=== PATIENT | male | born 1985 | race African-American/Black ===

== ENCOUNTER 2016-11-13 02:27 | Emergency (ER) | payer SELFPAY ==
[~2016-11-13] VITALS: Ht 188 cm; Wt 84.0 kg
[~2016-11-13 02:27] MED LIST: CLIN1CAP5 PO; NAPR500 PO
[2016-11-13 02:29] VITALS: BP 140/89; PULSE 78; RESP 16; TEMP 97.3; O2SAT 100
--- NOTE | 2016-11-13 03:17 | PD ---
HPI Chief Complaint: Psychiatric Symptoms Time Seen by Provider: 03:16 Travel History International Travel<30 days: No Contact w/Intl Traveler<30days: No Traveled to known affect area: No History of Present Illness HPI Patient comes in requesting psychiatric evaluation. Patient states over the past 2-3 days has been feeling more depressed and crying. Patient states he use to use flakka, but he has not in a while. He thought about finding some decided to come to the emergency department further treatment and evaluation. Patient states that he is having thoughts of killing other people and then possibly himself. He states he does not want to do this so is seeking help. Patient denies any medical complaints. Denies any chest pain or shortness of breath, nausea or vomiting, abdominal pain, back pain, or fevers. PFSH Past Medical History Anxiety: Yes Cancer: No Cardiovascular Problems: Yes (high bp) Diminished Hearing: No Endocrine: No Gastrointestinal Disorders: Yes (STOMACH ULCERS) Genitourinary: No Hypertension: Yes Immune Disorder: No Implanted Vascular Access Dvce: No Musculoskeletal: Yes (Costochondritis) Neurologic: No Psychiatric: No Respiratory: No Immunizations Current: Yes Past Surgical History Abdominal Surgery: Yes (HERNIA REPAIR - INGUINAL LEFT @ age 15) Cholecystectomy: Yes Other Surgery: Yes (hernia) Social History Alcohol Use: No (UNABLE TO ACCESS) Tobacco Use: No Substance Use: Yes (UNKNOWN ) Allergies-Medications (Allergen,Severity, Reaction): Coded Allergies: No Known Allergies (Verified , 11/13/16) Reported Meds & Prescriptions Reported Meds & Active Scripts Active Review of Systems Except as stated in HPI: all other systems reviewed are Neg Physical Exam Narrative GENERAL: Well-developed, well nourished, in no acute distress, and non-ill appearing. SKIN: Warm and dry. HEAD: Atraumatic. Normocephalic. EYES: Pupils equal and round. EOMI. No scleral icterus. No injection or drainage. ENT: No nasal bleeding or discharge. Mucous membranes pink and moist. NECK: Trachea midline. Supple. No nuclear rigidity. CARDIOVASCULAR: Regular rate and rhythm. No murmur appreciated. RESPIRATORY: No accessory muscle use. No respiratory distress. Clear to auscultation. Breath sounds equal bilaterally. MUSCULOSKELETAL: No obvious deformities. No clubbing. No cyanosis. No edema. Full range of motion. NEUROLOGICAL: Awake and alert. No obvious cranial nerve deficits. Motor grossly within normal limits. Normal speech. PSYCHIATRIC: Appropriate mood and affect; insight and judgment normal. Data Data Last Documented VS Vital Signs Date Time Temp Pulse Resp B/P Pulse Ox O2 Delivery O2 Flow Rate FiO2 11/13/16 03:06 20 11/13/16 02:29 97.3 78 140/89 100 Orders Complete Blood Count With Diff (11/13/16 03:00) Comprehensive Metabolic Panel (11/13/16 03:00) Psych Screen (11/13/16 03:00) Drug Screen, Random Urine (11/13/16 03:00) Alcohol (Ethanol) (11/13/16 03:00) Salicylates (Aspirin) (11/13/16 03:00) Tylenol (Acetaminophen) (11/13/16 03:00) Labs Laboratory Tests Test 11/13/16 03:35 White Blood Count 7.6 TH/MM3 Red Blood Count 5.07 MIL/MM3 Hemoglobin 14.0 GM/DL Hematocrit 40.7 % Mean Corpuscular Volume 80.3 FL Mean Corpuscular Hemoglobin 27.5 PG Mean Corpuscular Hemoglobin 34.3 % Concent Red Cell Distribution Width 14.5 % Platelet Count 237 TH/MM3 Mean Platelet Volume 8.5 FL Neutrophils (%) (Auto) 40.8 % Lymphocytes (%) (Auto) 42.4 % Monocytes (%) (Auto) 10.9 % Eosinophils (%) (Auto) 5.0 % Basophils (%) (Auto) 0.9 % Neutrophils # (Auto) 3.1 TH/MM3 Lymphocytes # (Auto) 3.2 TH/MM3 Monocytes # (Auto) 0.8 TH/MM3 Eosinophils # (Auto) 0.4 TH/MM3 Basophils # (Auto) 0.1 TH/MM3 CBC Comment DIFF FINAL Differential Comment Sodium Level 144 MEQ/L Potassium Level 4.0 MEQ/L Chloride Level 109 MEQ/L Carbon Dioxide Level 25.8 MEQ/L Anion Gap 9 MEQ/L Blood Urea Nitrogen 13 MG/DL Creatinine 1.17 MG/DL Estimat Glomerular Filtration 89 ML/MIN Rate Random Glucose 81 MG/DL Calcium Level 8.8 MG/DL Total Bilirubin 0.2 MG/DL Aspartate Amino Transf 25 U/L (AST/SGOT) Alanine Aminotransferase 34 U/L (ALT/SGPT) Alkaline Phosphatase 109 U/L Total Protein 6.9 GM/DL Albumin 3.7 GM/DL Salicylates Level 2.9 MG/DL Acetaminophen Level LESS THAN 2.0 MCG/ML Ethyl Alcohol Level LESS THAN 3 MG/DL MDM Medical Decision Making Medical Screen Exam Complete: Yes Emergency Medical Condition: Yes Differential Diagnosis Homicidal, suicidal, substance abuse, alcohol intoxication, electrolyte abnormality, other Narrative Course Patient was seen and examined. Due to patient's homicidal and suicidal ideations patient was placed under Hung act. Labs were obtained and reviewed with the exception of urine drug screen which has not been reported yet. Patient medically cleared for further treatment and evaluation by psych. Final disposition per psych. Diagnosis Primary Impression: Suicidal ideations Additional Impression: Homicidal ideations Condition: Stable Levy Mera Nov 13, 2016 03:17 Levy Mera Nov 13, 2016 03:17
[2016-11-13 04:00] LABS: AUTOMATED NEUTROPHIL # 3.1 TH/MM3 (1.8-7.7); BASOPHIL # 0.1 TH/MM3 (0-0.2); BASOPHIL % 0.9 % (0.0-2.0); EOSINOPHIL # 0.4 TH/MM3 (0-0.4); HEMATOCRIT 40.7 % (39.0-51.0); HEMO FLAGS DIFF FINAL; LYMPH % 42.4 % (9.0-44.0); LYMPHOCYTE # 3.2 TH/MM3 (1.0-4.8); MEAN CELL VOLUME 80.3 FL (80.0-100.0); MEAN CORPUSCULAR HEMOGLOBIN 27.5 PG (27.0-34.0); MEAN CORPUSCULAR HGB CONC 34.3 % (32.0-36.0); MONO % 10.9 % (0.0-8.0); NEUT % 40.8 % (16.0-70.0); PLATELET COUNT 237 TH/MM3 (150-450); RED BLOOD COUNT 5.07 MIL/MM3 (4.50-5.90); RED CELL DISTRIBUTION WIDTH 14.5 % (11.6-17.2); WHITE BLOOD COUNT 7.6 TH/MM3 (4.0-11.0)
[2016-11-13 04:14] LABS: ALT (GPT) 34 U/L (12-78); ANION GAP 9 MEQ/L (5-15); AST (GOT) 25 U/L (15-37); BICARBONATE 25.8 MEQ/L (21.0-32.0); BLOOD UREA NITROGEN 13 MG/DL (7-18); CHLORIDE 109 MEQ/L (98-107); GLOMERULAR FILTRATION RATE 89 ML/MIN (>89); SODIUM (NA) 144 MEQ/L (136-145)
[2016-11-13 04:16] LABS: ACETAMINOPHEN LESS THAN 2.0 MCG/ML (10.0-30.0); ALKALINE PHOSPHATASE 109 U/L (45-117); TOTAL BILIRUBIN ADULT 0.2 MG/DL (0.2-1.0)
[2016-11-13 05:11] LABS: AMPHETAMINE, URINE NEG (NEG); BARBITURATES, URINE NEG (NEG); COCAINE, URINE NEG (NEG)
[2016-11-13 07:09] VITALS: BP 127/81; PULSE 74; RESP 20; O2SAT 100
[2016-11-13 10:53] VITALS: BP 121/75; PULSE 58; RESP 17; O2SAT 100
[2016-11-13 13:24] VITALS: BP 140/83
[2016-11-13 18:54] VITALS: BP 134/69; PULSE 67; RESP 18; O2SAT 97
== END 2016-11-13 21:45 ==
LOC: NEPA 02:27 → NEPJ 21:45
DX: R45.851 Suicidal ideations (principal); R45.850 Homicidal ideations; I10 Essential (primary) hypertension
CPT/HCPCS: 80053; 80307; 85025; 99285

== ENCOUNTER 2016-11-23 03:58 | Emergency (ER) | payer SELFPAY ==
[~2016-11-23] VITALS: Ht 185.4 cm; Wt 90.9 kg
[2016-11-23 04:10] VITALS: BP 163/82; PULSE 77; RESP 20; TEMP 97.6; O2SAT 98
--- NOTE | 2016-11-23 04:11 | PD ---
HPI Chief Complaint: psychiatric evaluation Time Seen by Provider: 04:09 Travel History International Travel<30 days: No Contact w/Intl Traveler<30days: No History of Present Illness HPI Patient comes in under a Hung act by police for having suicidal homicidal ideations. Patient states that people were antagonizing him to get him irritated. Patient denies any medical concerns at this time. Denies any chest pain, shortness breath, fevers, headache, nausea, vomiting, or abdominal pain. PFSH Past Medical History Anxiety: Yes Depression: Yes Cancer: No Cardiovascular Problems: Yes (high bp) Diminished Hearing: No Endocrine: No Gastrointestinal Disorders: Yes (STOMACH ULCERS) Genitourinary: No Hypertension: Yes Immune Disorder: No Implanted Vascular Access Dvce: No Musculoskeletal: Yes (Costochondritis) Neurologic: No Psychiatric: No Respiratory: No Immunizations Current: Yes Past Surgical History Abdominal Surgery: Yes (HERNIA REPAIR - INGUINAL LEFT @ age 15) Cholecystectomy: Yes Other Surgery: Yes (hernia) Social History Alcohol Use: No Tobacco Use: Yes (one pack a week) Substance Use: Yes (pot/kiran) Allergies-Medications (Allergen,Severity, Reaction): Coded Allergies: No Known Allergies (Verified , 11/13/16) Reported Meds & Prescriptions Reported Meds & Active Scripts Active Review of Systems Except as stated in HPI: all other systems reviewed are Neg Physical Exam Narrative GENERAL: Well-developed, well nourished, in no acute distress, and non-ill appearing. SKIN: Warm and dry. HEAD: Atraumatic. Normocephalic. EYES: Pupils equal and round. EOMI. No scleral icterus. No injection or drainage. ENT: No nasal bleeding or discharge. Mucous membranes pink and moist. NECK: Trachea midline. Supple. No nuclear rigidity. CARDIOVASCULAR: Regular rate and rhythm. No murmur appreciated. RESPIRATORY: No accessory muscle use. No respiratory distress. Clear to auscultation. Breath sounds equal bilaterally. MUSCULOSKELETAL: No obvious deformities. No clubbing. No cyanosis. No edema. Full range of motion. NEUROLOGICAL: Awake and alert. No obvious cranial nerve deficits. Motor grossly within normal limits. Normal speech. PSYCHIATRIC: Appropriate mood and affect. Data Data Last Documented VS Vital Signs Date Time Temp Pulse Resp B/P Pulse Ox O2 Delivery O2 Flow Rate FiO2 11/23/16 04:10 97.6 77 20 163/82 98 Orders Complete Blood Count With Diff (11/23/16 04:08) Comprehensive Metabolic Panel (11/23/16 04:08) Psych Screen (11/23/16 04:08) Drug Screen, Random Urine (11/23/16 04:08) Alcohol (Ethanol) (11/23/16 04:08) Salicylates (Aspirin) (11/23/16 04:08) Tylenol (Acetaminophen) (11/23/16 04:08) Labs Laboratory Tests Test 11/23/16 04:20 White Blood Count 5.8 TH/MM3 Red Blood Count 4.90 MIL/MM3 Hemoglobin 13.3 GM/DL Hematocrit 39.3 % Mean Corpuscular Volume 80.2 FL Mean Corpuscular Hemoglobin 27.2 PG Mean Corpuscular Hemoglobin 33.9 % Concent Red Cell Distribution Width 14.5 % Platelet Count 201 TH/MM3 Mean Platelet Volume 9.0 FL Neutrophils (%) (Auto) 26.4 % Lymphocytes (%) (Auto) 48.7 % Monocytes (%) (Auto) 19.8 % Eosinophils (%) (Auto) 4.5 % Basophils (%) (Auto) 0.6 % Neutrophils # (Auto) 1.5 TH/MM3 Lymphocytes # (Auto) 2.8 TH/MM3 Monocytes # (Auto) 1.2 TH/MM3 Eosinophils # (Auto) 0.3 TH/MM3 Basophils # (Auto) 0.0 TH/MM3 CBC Comment DIFF FINAL Differential Comment Sodium Level 143 MEQ/L Potassium Level 3.6 MEQ/L Chloride Level 112 MEQ/L Carbon Dioxide Level 24.3 MEQ/L Anion Gap 7 MEQ/L Blood Urea Nitrogen 14 MG/DL Creatinine 1.15 MG/DL Estimat Glomerular Filtration 91 ML/MIN Rate Random Glucose 98 MG/DL Calcium Level 8.7 MG/DL Total Bilirubin 0.3 MG/DL Aspartate Amino Transf 55 U/L (AST/SGOT) Alanine Aminotransferase 50 U/L (ALT/SGPT) Alkaline Phosphatase 117 U/L Total Protein 7.3 GM/DL Albumin 3.7 GM/DL Acetaminophen Level LESS THAN 2.0 MCG/ML Ethyl Alcohol Level LESS THAN 3 MG/DL MDM Medical Decision Making Medical Screen Exam Complete: Yes Emergency Medical Condition: Yes Differential Diagnosis Homicidal, suicidal, substance abuse, adjustment disorder, mood disorder, other Narrative Course Patient was seen and examined. Labs were obtained and reviewed with the exception of urine drug screen has not been collected yet. Patient medically cleared for further treatment and evaluation by psych. Final disposition per psych. Diagnosis Primary Impression: Medical clearance for psychiatric admission Condition: Levy Decker Nov 23, 2016 04:11
[2016-11-23 04:57] LABS: AUTOMATED NEUTROPHIL # 1.5 TH/MM3 (1.8-7.7); BASOPHIL % 0.6 % (0.0-2.0); EOSINOPHIL # 0.3 TH/MM3 (0-0.4); EOSINOPHIL % 4.5 % (0.0-4.0); HEMATOCRIT 39.3 % (39.0-51.0); HEMO FLAGS DIFF FINAL; LYMPH % 48.7 % (9.0-44.0); LYMPHOCYTE # 2.8 TH/MM3 (1.0-4.8); MEAN CELL VOLUME 80.2 FL (80.0-100.0); MEAN CORPUSCULAR HEMOGLOBIN 27.2 PG (27.0-34.0); MEAN CORPUSCULAR HGB CONC 33.9 % (32.0-36.0); MONO % 19.8 % (0.0-8.0); NEUT % 26.4 % (16.0-70.0); PLATELET COUNT 201 TH/MM3 (150-450); RED CELL DISTRIBUTION WIDTH 14.5 % (11.6-17.2); WHITE BLOOD COUNT 5.8 TH/MM3 (4.0-11.0)
[2016-11-23 05:19] LABS: ANION GAP 7 MEQ/L (5-15); AST (GOT) 55 U/L (15-37); BICARBONATE 24.3 MEQ/L (21.0-32.0); BLOOD UREA NITROGEN 14 MG/DL (7-18); CHLORIDE 112 MEQ/L (98-107); GLOMERULAR FILTRATION RATE 91 ML/MIN (>89); POTASSIUM 3.6 MEQ/L (3.5-5.1); SODIUM (NA) 143 MEQ/L (136-145)
[2016-11-23 05:22] LABS: ACETAMINOPHEN LESS THAN 2.0 MCG/ML (10.0-30.0); ALKALINE PHOSPHATASE 117 U/L (45-117); ALT (GPT) 50 U/L (12-78); TOTAL BILIRUBIN ADULT 0.3 MG/DL (0.2-1.0)
[2016-11-23 09:25] LABS: AMPHETAMINE, URINE NEG (NEG); BARBITURATES, URINE NEG (NEG); COCAINE, URINE NEG (NEG)
[2016-11-23 14:00] VITALS: BP 144/64; PULSE 67; RESP 18; TEMP 98.7; O2SAT 99
--- NOTE | 2016-11-23 14:29 | PD ---
History of Present Illness Chief Complaint: Psychiatric Symptoms Time Seen by Provider: 14:00 Travel History International Travel<30 Days: No Contact w/Intl Traveler<30days: No Known affected area: No Legal Status Legal Status: Hung Act History of Present Illness: History of Present Illness HPI 31 year old male with history of substance use disorder who comes in under a Hung act initiated by police. As per the report he contacted the police and advised them that he felt suicidal and homicidal . He stated he wanted to hurt himself and to achieve such he would walk unto traffic. As per ED documentation patient reported that people were antagonizing him to get him irritated. EMR reviewed . Patient was at [facility] on November 13 and was sent to [facility]. He initially presented with suicidal ideation and later made threats that he wanted to shoot people. Patient with hx of substance abuse including Flakka. Current toxicology is positive for cannabinoids. Patient is seen in [facility]. He is irritable and uncooperative. Refuses to answer questions and sates " It's in my chart from 1 and a half year ago. You should know all that." He talks in circles. He insists that he needs to file a report with the police because "there are people out there that are going to hurt me". He denies any psychiatric condition. Patient becomes increasingly agitated and states that if he is discharged from the hospital he will go out and kill several people. he is advised that he has been placed on [facility] list for treatment and will remain here until his acceptance there. He makes several requests such as extra lunch, extra blankets and staff have provided such for him. He continued to escalate and made verbal threats towards staff " I will hurt someone just to prove my point". Verbal attempts at deescalation were unsuccessful. Patient required ETO as well as restraints as he threatened to hurt security staff. [facility] Past Medical History Anxiety: Yes Depression: Yes Cancer: No Cardiovascular Problems: Yes (high bp) Diminished Hearing: No Endocrine: No Gastrointestinal Disorders: Yes (STOMACH ULCERS) Genitourinary: No Hypertension: Yes Immune Disorder: No Implanted Vascular Access Dvce: No Musculoskeletal: Yes (Costochondritis) Neurologic: No Psychiatric: No Respiratory: No Immunizations Current: Yes Past Surgical History Abdominal Surgery: Yes (HERNIA REPAIR - INGUINAL LEFT @ age 15) Cholecystectomy: Yes Other Surgery: Yes (hernia) Psychiatric History Psychiatric History Hx Psychiatric Treatment: WAS HUNG ACTED 10 DAYS HERE BY THE ER DOCTOR FOR MAKING SUICIDAL AND HOMICIDAL STATEMENTS. HE WENT TO [facility]. HE DENIED PREVIOUS TREATMENT AT [facility] A CHILD, ALTHOUGH MEDICAL RECORDS INDICATE CONTACT IN 2003 History of Inpatient Treatment: Yes Social History refused to answer. " Why do you need to know that? Hx Alcohol Use: No Hx Tobacco Use: Yes (one pack a week) Hx Substance Use: Yes (pot/kiran, FLAKKA) Substance Use Type: Other Other Substances Used: KLAKKA, MARIJUANA Hx of Substance Use Treatment: No Allergies-Medications (Allergen,Severity, Reaction): Coded Allergies: No Known Allergies (Verified , 11/13/16) Reported Meds & Prescriptions Reported Meds & Active Scripts Active Review of Systems ROS Limitations: Uncooperative Exam Alert: Yes [place]: Person (ox4) Mood: Agitated, Other (threatning) Affect: Other Speech: Clear (Talks in circles) Memory Intact: Comment (unable to test) Delusion Type: Paranoid Homicidal: Ideation (reports intent to shoot people) Insight/Judgement poor. poor MDM Medical Decision Making Medical Record Reviewed: Yes Assessment/Plan 31 year old male under a BA. He is uncooperative, agitated, threatening. Patient remains on [facility] as well as [facility] list. There are no appropriate beds at [facility] at this time.. Orders Complete Blood Count With Diff (11/23/16 04:08) Comprehensive Metabolic Panel (11/23/16 04:08) Psych Screen (11/23/16 04:08) Drug Screen, Random Urine (11/23/16 04:08) Alcohol (Ethanol) (11/23/16 04:08) Salicylates (Aspirin) (11/23/16 04:08) Tylenol (Acetaminophen) (11/23/16 04:08) Diet Regular Basic (11/23/16 Breakfast) Diet Regular Basic (11/23/16 Lunch) Diet Regular Basic (11/23/16 Dinner) Results Vital Signs Date Time Temp Pulse Resp B/P Pulse Ox O2 Delivery O2 Flow Rate FiO2 11/23/16 04:10 97.6 77 20 163/82 98 Laboratory Tests Test 11/23/16 11/23/16 04:20 09:00 White Blood Count 5.8 Red Blood Count 4.90 Hemoglobin 13.3 Hematocrit 39.3 Mean Corpuscular Volume 80.2 Mean Corpuscular Hemoglobin 27.2 Mean Corpuscular Hemoglobin 33.9 Concent Red Cell Distribution Width 14.5 Platelet Count 201 Mean Platelet Volume 9.0 Neutrophils (%) (Auto) 26.4 Lymphocytes (%) (Auto) 48.7 Monocytes (%) (Auto) 19.8 Eosinophils (%) (Auto) 4.5 Basophils (%) (Auto) 0.6 Neutrophils # (Auto) 1.5 Lymphocytes # (Auto) 2.8 Monocytes # (Auto) 1.2 Eosinophils # (Auto) 0.3 Basophils # (Auto) 0.0 CBC Comment DIFF FINAL Differential Comment Sodium Level 143 Potassium Level 3.6 Chloride Level 112 Carbon Dioxide Level 24.3 Anion Gap 7 Blood Urea Nitrogen 14 Creatinine 1.15 Estimat Glomerular Filtration 91 Rate Random Glucose 98 Calcium Level 8.7 Total Bilirubin 0.3 Aspartate Amino Transf 55 (AST/SGOT) Alanine Aminotransferase 50 (ALT/SGPT) Alkaline Phosphatase 117 Total Protein 7.3 Albumin 3.7 Salicylates Level 2.1 Acetaminophen Level LESS THAN 2.0 Ethyl Alcohol Level LESS THAN 3 Urine Opiates Screen NEG Urine Barbiturates Screen NEG Urine Amphetamines Screen NEG Urine Benzodiazepines Screen NEG Urine Cocaine Screen NEG Urine Cannabinoids Screen POS Diagnosis Primary Impression: Medical clearance for psychiatric admission Additional Impressions: Drug-induced mood disorder Substance abuse Disposition: 65 DISC TO PSYCH CARE FACILITY Condition: Stable Problem Qualifiers Taylor Conner Nov 23, 2016 14:29
[2016-11-23] MEDS ORDERED: HALOPERIDOL LACTATE 5 MG/ML AMP ONE (15:57)
[2016-11-23] MEDS ORDERED: diphenhydrAMINE HCL 50 MG/ML VIAL ONE (15:58)
[2016-11-23] MEDS ORDERED: LORazepam 2 MG/ML VIAL ONE (15:58)
[2016-11-23] MEDS ORDERED: LORazepam 2 MG/ML VIAL IM ONE (16:30)
[2016-11-23 18:45] VITALS: BP 142/94; PULSE 60; RESP 18; TEMP 97.9; O2SAT 98
[2016-11-23 22:15] VITALS: BP 140/90; PULSE 62; RESP 18; O2SAT 99
== END 2016-11-24 00:39 ==
LOC: NEPA 03:58 → NEPJ 11-24 00:39
DX: Z02.89 Encounter for other administrative examinations (principal); F19.94 Other psychoactive substance use, unspecified with psychoactive substance-induced mood disorder; F19.10 Other psychoactive substance abuse, uncomplicated; R45.851 Suicidal ideations; R45.850 Homicidal ideations; I10 Essential (primary) hypertension; Z72.0 Tobacco use; Z86.59 Personal history of other mental and behavioral disorders; Z86.79 Personal history of other diseases of the circulatory system; Z87.19 Personal history of other diseases of the digestive system; Z87.39 Personal history of other diseases of the musculoskeletal system and connective tissue
CPT/HCPCS: 80053; 80307; 85025; 96372; 96374; 99285; J1200; J1630; J2060

== ENCOUNTER 2016-12-15 04:04 | Emergency (ER) | payer SELFPAY ==
[~2016-12-15] VITALS: Ht 180.3 cm; Wt 91.0 kg
[2016-12-15 04:07] VITALS: BP 119/71; PULSE 89; RESP 16; TEMP 97.6; O2SAT 100
--- NOTE | 2016-12-15 04:43 | PD ---
HPI . Homicidal ideation Chief Complaint: Psychiatric Symptoms Time Seen by Provider: :17 Travel History International Travel<30 days: No Contact w/Intl Traveler<30days: No Traveled to known affect area: No History of Present Illness HPI Patient presented through the front door stating that he wanted to hurt those were trying to hurt him. The patient telling me to look at his records. He denies any suicidal ideation. I am unable to determine onset of his symptoms. I am unable to determine whether there are any exacerbating or relieving factors. PFSH Past Medical History Anxiety: Yes Depression: Yes Cancer: No Cardiovascular Problems: Yes (high bp) Diminished Hearing: No Endocrine: No Gastrointestinal Disorders: Yes (STOMACH ULCERS) Genitourinary: No Hypertension: Yes Immune Disorder: No Implanted Vascular Access Dvce: No Musculoskeletal: Yes (Costochondritis) Neurologic: No Psychiatric: No Respiratory: No Immunizations Current: Yes Past Surgical History Abdominal Surgery: Yes (HERNIA REPAIR - INGUINAL LEFT @ age 15) Cholecystectomy: Yes Other Surgery: Yes (hernia) Social History Alcohol Use: No Tobacco Use: Yes (one pack a week) Substance Use: Yes (pot/kiran, FLAKKA) Allergies-Medications (Allergen,Severity, Reaction): Coded Allergies: No Known Allergies (Verified , 11/13/16) Reported Meds & Prescriptions Reported Meds & Active Scripts Active No Active Prescriptions or Reported Medications Review of Systems Except as stated in HPI: all other systems reviewed are Neg Psychiatric: Positive: Homicidal Ideation, No: Suicidal Ideations Physical Exam Narrative GENERAL: Awake and alert. SKIN: Warm and dry. HEAD: Atraumatic. Normocephalic. EYES: Pupils equal and round. Extraocular movements are intact. NECK: Trachea midline. Neck is supple. CARDIOVASCULAR: Regular rate and rhythm. RESPIRATORY: No accessory muscle use. MUSCULOSKELETAL: No obvious deformities. No edema. NEUROLOGICAL: Awake and alert. No obvious cranial nerve deficits. Motor grossly within normal limits. PSYCHIATRIC: Agitated and paranoid. Delusional. Auditory hallucinations. Data Data Last Documented VS Vital Signs Date Time Temp Pulse Resp B/P Pulse Ox O2 Delivery O2 Flow Rate FiO2 12/15/16 04:07 97.6 89 16 119/71 100 Room Air Orders Complete Blood Count With Diff (12/15/16 04:17) Comprehensive Metabolic Panel (12/15/16 04:17) Psych Screen (12/15/16 04:17) Drug Screen, Random Urine (12/15/16 04:17) Alcohol (Ethanol) (12/15/16 04:17) Cath For Specimen (12/15/16 05:53) Labs Laboratory Tests Test 12/15/16 12/15/16 04:30 05:58 White Blood Count 5.7 TH/MM3 Red Blood Count 4.92 MIL/MM3 Hemoglobin 13.6 GM/DL Hematocrit 39.6 % Mean Corpuscular Volume 80.6 FL Mean Corpuscular Hemoglobin 27.7 PG Mean Corpuscular Hemoglobin 34.4 % Concent Red Cell Distribution Width 14.8 % Platelet Count 226 TH/MM3 Mean Platelet Volume 8.5 FL Neutrophils (%) (Auto) 34.6 % Lymphocytes (%) (Auto) 49.8 % Monocytes (%) (Auto) 11.5 % Eosinophils (%) (Auto) 3.5 % Basophils (%) (Auto) 0.6 % Neutrophils # (Auto) 2.0 TH/MM3 Lymphocytes # (Auto) 2.8 TH/MM3 Monocytes # (Auto) 0.7 TH/MM3 Eosinophils # (Auto) 0.2 TH/MM3 Basophils # (Auto) 0.0 TH/MM3 CBC Comment DIFF FINAL Differential Comment Sodium Level 142 MEQ/L Potassium Level 4.3 MEQ/L Chloride Level 109 MEQ/L Carbon Dioxide Level 26.0 MEQ/L Anion Gap 7 MEQ/L Blood Urea Nitrogen 13 MG/DL Creatinine 1.38 MG/DL Estimat Glomerular Filtration 74 ML/MIN Rate Random Glucose 84 MG/DL Calcium Level 9.1 MG/DL Total Bilirubin 0.5 MG/DL Aspartate Amino Transf 20 U/L (AST/SGOT) Alanine Aminotransferase 30 U/L (ALT/SGPT) Alkaline Phosphatase 100 U/L Total Protein 7.6 GM/DL Albumin 4.0 GM/DL Ethyl Alcohol Level LESS THAN 3 MG/DL Urine Opiates Screen NEG Urine Barbiturates Screen NEG Urine Amphetamines Screen NEG Urine Benzodiazepines Screen NEG Urine Cocaine Screen POS Urine Cannabinoids Screen POS MDM Medical Decision Making Medical Screen Exam Complete: Yes Emergency Medical Condition: Yes Medical Record Reviewed: Yes (patient has had previous visits here before under similar circumstances. He has a diagnosis of drug induced behavior disorder.) Differential Diagnosis Differential diagnosis includes intoxication, psychosis Narrative Course Patient presented voluntarily with homicidal ideation. The patient appears psychotic and paranoid. I have initiated a Hung Act. CBC & BMP Diagram 12/15/16 04:30 Tox screen is positive for cocaine and marijuana Patient is medically clear for psychiatric evaluation. Diagnosis Primary Impression: Homicidal ideations Additional Impression: Psychosis Qualified Code: F29 - Psychosis, unspecified psychosis type Scripts No Active Prescriptions or Reported Meds Condition: Marychuy Hurt MD Dec 15, 2016 04:43
[2016-12-15 04:53] LABS: BASOPHIL % 0.6 % (0.0-2.0); EOSINOPHIL # 0.2 TH/MM3 (0-0.4); EOSINOPHIL % 3.5 % (0.0-4.0); HEMATOCRIT 39.6 % (39.0-51.0); HEMO FLAGS DIFF FINAL; LYMPH % 49.8 % (9.0-44.0); LYMPHOCYTE # 2.8 TH/MM3 (1.0-4.8); MEAN CELL VOLUME 80.6 FL (80.0-100.0); MEAN CORPUSCULAR HEMOGLOBIN 27.7 PG (27.0-34.0); MEAN CORPUSCULAR HGB CONC 34.4 % (32.0-36.0); MONO % 11.5 % (0.0-8.0); NEUT % 34.6 % (16.0-70.0); PLATELET COUNT 226 TH/MM3 (150-450); RED BLOOD COUNT 4.92 MIL/MM3 (4.50-5.90); RED CELL DISTRIBUTION WIDTH 14.8 % (11.6-17.2); WHITE BLOOD COUNT 5.7 TH/MM3 (4.0-11.0)
[2016-12-15 04:59] LABS: ALT (GPT) 30 U/L (12-78); ANION GAP 7 MEQ/L (5-15); AST (GOT) 20 U/L (15-37); BLOOD UREA NITROGEN 13 MG/DL (7-18); CHLORIDE 109 MEQ/L (98-107); GLOMERULAR FILTRATION RATE 74 ML/MIN (>89); POTASSIUM 4.3 MEQ/L (3.5-5.1); SODIUM (NA) 142 MEQ/L (136-145)
[2016-12-15 05:02] LABS: ALKALINE PHOSPHATASE 100 U/L (45-117); TOTAL BILIRUBIN ADULT 0.5 MG/DL (0.2-1.0)
[2016-12-15 06:18] LABS: AMPHETAMINE, URINE NEG (NEG); BARBITURATES, URINE NEG (NEG); COCAINE, URINE POS (NEG)
--- NOTE | 2016-12-15 13:03 | PD.CONS ---
Provisional Diagnosis Admission Date [place] I. Polysubstance dependence, including cocaine, cannabis and Flakka [place] II. Antisocial personality disorder [place] III. No medical history [place] IV. Continues use of multiple illicit drugs [place] V. 57 History of Present Illness Service Psychiatry Consult Requested By Primary Care Physician No Primary Care Physician HPI The patient is a 41-year-old man, domicile with family in [facility], unemployed, single, psychiatric history of polysubstance dependence, including Flakka, cocaine and cannabis, antisocial personality disorder, numerous visits to the ER due to substance related problems, nurse and medical medical history, 2 previous psychiatric hospitalizations, the hospitalizations are related to paranoia and visual hallucinations consequence of substance intoxication, no previous suicidal attempts, who was brought to the hospital on the Hung act due unspecific homicidal ideation, patient stated that he would kill the people that would harm him. On psychiatric evaluation today patient is found sleeping in his bed, easily arousable, extremely disheveled and malodorous, he says that he feels "terrible" "too much drugs yesterday". He is irritable, guarded, but he says that he is better now ready to go back home, he denies depressive symptoms, he denies anhedonia, he denies anxiety, he denies visual and auditory hallucinations, he denies suicidal and homicidal ideation. Tried to make the patient to elaborate about previous homicidal ideation, and he clarifies that he would harm who ever harm him. No symptomatology of withdrawal is observed at this moment. He does not seem to be intoxicated. No paranoia, delusions, agitation or aggressive behaviors are present reported. Patient declines to talk about circumstances and details of his drug use, he just says I use Flakka every day. Review of Systems Constitutional: DENIES: Diaphoretic episodes, Fatigue, Fever, Weight gain, Weight loss, Chills, Dizziness, Change in appetite, Night Sweats Endocrine: DENIES: Heat/cold intolerance, Polydipsia, Polyuria, Polyphagia Ears, nose, mouth, throat: DENIES: Tinnitus, Hearing loss, Vertigo, Nasal discharge, Oral lesions, Throat pain, Hoarseness, Ear Pain, Running Nose, Epistaxis, Sinus Pain, Toothache, Odynophagia Respiratory: DENIES: Apneas, Cough, Snoring, Wheezing, Hemoptysis, Sputum production, Shortness of breath Cardiovascular: DENIES: Chest pain, Palpitations, Syncope, Dyspnea on Exertion , PND, Lower Extremity Edema, Orthopnea, Claudication Gastrointestinal: DENIES: Abdominal pain, Black stools, Bloody stools, Constipation, Diarrhea, Nausea, Vomiting, Difficulty Swallowing, Anorexia Genitourinary: DENIES: Sexual dysfunction, Urinary frequency, Urinary incontinence, Urgency, Hematuria, Dysuria, Nocturia, Penile Discharge, Testicular Pain, Testicular Swelling Musculoskeletal: DENIES: Joint pain, Muscle aches, Stiffness, Joint Swelling, Back pain, Neck pain Neurologic: DENIES: Abnormal gait, Headache, Localized weakness, Paresthesias, Seizures, Speech Problems, Tremor, Poor Balance Past Family Social History Coded Allergies: No Known Allergies (Verified , 11/13/16) No Active Prescriptions or Reported Meds Family History He denies Social History Patient was born and raised in [place], he lives with family in [place], he is unemployed, his single, his highest level of education is eighth grade Physical Exam On physical exam no agitation, no restlessness, no EPS, no withdrawal present Vital Signs Vital Signs Date Time Temp Pulse Resp B/P Pulse Ox O2 Delivery O2 Flow Rate FiO2 12/15/16 04:07 97.6 89 16 119/71 100 Room Air Lab Results BAL is negative, toxicology positive for cannabis and cocaine Mental Status Examination Appearance man, disheveled, malodorous, age appearing, guarded, superficially cooperative Speech: Unremarkable Orientation: x3 Thought Process: Logical Thought Content: Unremarkable Hallucination Type: None Suicidal Ideation: No Homicidal Ideation: No Previous Homicide Attempts: No Insight: Fair Judgment: Impulsive Affect: Irritable Mood: Angry Motor Activity: Normal gait Assessment & Plan Problem List: (1) Substance induced mood disorder Assessment & Plan: On psychiatric examination the patient is clinically sober, he denies depressive symptoms, he denies anxiety, he denies psychosis, suicidal ideation homicidal ideation, he denies visual and auditory hallucinations. He does not meet criteria for involuntary psychiatric admission at this moment. Recent homicidal statement was most probably secondary to acute polysubstance intoxication and also due to antisocial personality disorder. Hung act will be lifted. ICD Code: F19.94 Assessment & Plan Estimated LOS: Diony Parker MD Dec 15, 2016 13:03
== END 2016-12-15 09:27 | disposition home or self-care (01) ==
LOC: NEPC 04:04
DX: R45.850 Homicidal ideations (principal); F29 Unspecified psychosis not due to a substance or known physiological condition; F32.9 Major depressive disorder, single episode, unspecified; Z87.19 Personal history of other diseases of the digestive system; I10 Essential (primary) hypertension; F19.14 Other psychoactive substance abuse with psychoactive substance-induced mood disorder
CPT/HCPCS: 80053; 80307; 85025; 99284

== ENCOUNTER 2016-12-18 07:30 | Emergency (ER) | payer OTHER ==
[~2016-12-18] VITALS: Ht 188 cm; Wt 86.5 kg
[2016-12-18 07:40] VITALS: BP 133/89; PULSE 78; RESP 18; TEMP 98.9; O2SAT 98
--- NOTE | 2016-12-18 10:45 | PD ---
HPI Chief Complaint: Psychiatric Symptoms Time Seen by Provider: 10:41 Travel History International Travel<30 days: No Contact w/Intl Traveler<30days: No Traveled to known affect area: No History of Present Illness HPI 31 year old male presents to the emergency department as a transfer from [facility] for psychiatric evaluation. Patient was placed under a Uhng Act for homicidal ideation. The patient was also seen here in the emergency department on 12/15 for psychiatric evaluation. I reviewed the records from previous visit as well as records from [facility]. Patient states she uses Flacka sometimes. He things people are out to get him and when asked if he as homicidal ideations, he states "sometimes". Patient denies any suicidal ideation. No medical complaints today. PFSH Past Medical History Anxiety: Yes (Per records.) Depression: Yes (Per records.) Cancer: No Cardiovascular Problems: Yes (high bp - Per records.) Patient Takes Glucophage: No Diminished Hearing: No Endocrine: No Gastrointestinal Disorders: Yes (STOMACH ULCERS - Per records.) Genitourinary: No Hypertension: Yes (Per records.) Immune Disorder: No Implanted Vascular Access Dvce: No Musculoskeletal: Yes (Costochondritis - Per records.) Neurologic: No Psychiatric: No Respiratory: No Immunizations Current: Yes ?: Not Past Surgical History Abdominal Surgery: Yes (HERNIA REPAIR - INGUINAL LEFT @ age 15 - Per records.) Cholecystectomy: Yes Other Surgery: Yes (hernia) Social History Alcohol Use: No (Per records.) Tobacco Use: Yes (one pack a week - Per records.) Substance Use: Yes (pot/kiran, FLAKKA Per records.) Allergies-Medications (Allergen,Severity, Reaction): Coded Allergies: No Known Allergies (Verified , 12/18/16) Per pt. Reported Meds & Prescriptions Reported Meds & Active Scripts Active No Active Prescriptions or Reported Medications Review of Systems Except as stated in HPI: all other systems reviewed are Neg Physical Exam Narrative GENERAL: Well-nourished, well-developed male patient, in no acute distress. Afebrile. SKIN: Focused skin assessment warm/dry. HEAD: Normocephalic. Atraumatic. EYES: No scleral icterus. No injection or drainage. NECK: Supple, trachea midline. No JVD or lymphadenopathy. CARDIOVASCULAR: Regular rate and rhythm without murmurs, gallops, or rubs. RESPIRATORY: Breath sounds equal bilaterally. No accessory muscle use. Lung sounds are clear to auscultation. GASTROINTESTINAL: Abdomen soft, non-tender, nondistended. MUSCULOSKELETAL: No cyanosis, or edema. PSYCHIATRIC: No delusional thought processes. No hallucinations. Data Data Last Documented VS Vital Signs Date Time Temp Pulse Resp B/P Pulse Ox O2 Delivery O2 Flow Rate FiO2 12/18/16 07:40 98.9 78 18 133/89 98 Room Air Orders Diet Regular Basic (12/18/16 Breakfast) [facility] Medical Decision Making Medical Screen Exam Complete: Yes Emergency Medical Condition: Yes Medical Record Reviewed: Yes Differential Diagnosis Substance-induced mood disorder versus homicidal ideations versus psychosis Narrative Course 31-year-old male presents to the emergency department under Hung act by [facility] for psychiatric evaluation. I reviewed the records from [facility] as well as the records from his previous visit here on December 15, 2016. Patient is medically cleared for psychiatric screening and disposition. Mental health screening discussed with the patient. Psychiatric screen ordered. Diagnosis Primary Impression: Drug-induced mood disorder Additional Instructions: Patient is medically cleared for psychiatric screening and disposition. Scripts No Active Prescriptions or Reported Meds Condition: Stable Ann-Marie Rodriguez Dec 18, 2016 10:45
[2016-12-18 11:55] VITALS: BP 129/76; PULSE 66; RESP 18; O2SAT 99
[2016-12-18 14:48] VITALS: BP 111/77; PULSE 80; RESP 18; O2SAT 97
[2016-12-18 18:43] VITALS: BP 130/77; PULSE 72; RESP 18; O2SAT 96
--- NOTE | 2016-12-18 18:53 | PD ---
History of Present Illness Chief Complaint: Psychiatric Symptoms Time Seen by Provider: 15:30 Travel History International Travel<30 Days: No Contact w/Intl Traveler<30days: No Known affected area: No Legal Status Legal Status: Hung Act Hung Act Signed By: Abhilash Rodriguez Comment: at [facility] History of Present Illness: History of Present Illness HPI 31 year old male with history of substance abuse including Isabel, mollys and cocaine who presents to the emergency department as a transfer from [facility] for psychiatric evaluation. Patient was placed under a Hung Act for homicidal ideation as well as paranoia while at [facility] . Patient was at [facility] on December 15 under a BA for homicidal ideation which he retracted when he was evaluated by Dr. Lreoy. Prior to that the patient was seen on november 23, 2016 also on a Ba for suicidal and homicidal ideation in context of possible substance use. He was sent to [facility]. The patient had lab work drawn at [facility] . His toxicology is negative although testing does not include substance such as Flakka. Patient is seen in J pod. he is agitated and demanding to have papers to file a complaint . He continues to repeat that staff have been talking about him with other patient's and that he has overheard them. He is also angry because " we think he is stupid". Staff have not interacted with him at alll this morning except to bring his meals and do safety checks. He continues to talk very loudly about the staff and his right to fill out a complaint. I offer to address his concerns but he continues to yell about staff talking about him. he is able to calm with verbal redirection. PFSH Past Medical History Anxiety: Yes (Per records.) Depression: Yes (Per records.) Cancer: No Cardiovascular Problems: Yes (high bp - Per records.) Patient Takes Glucophage: No Diminished Hearing: No Endocrine: No Gastrointestinal Disorders: Yes (STOMACH ULCERS - Per records.) Genitourinary: No Hypertension: Yes (Per records.) Immune Disorder: No Implanted Vascular Access Dvce: No Musculoskeletal: Yes (Costochondritis - Per records.) Neurologic: No Psychiatric: No Respiratory: No Immunizations Current: Yes ?: Not Past Surgical History Abdominal Surgery: Yes (HERNIA REPAIR - INGUINAL LEFT @ age 15 - Per records.) Cholecystectomy: Yes Other Surgery: Yes (hernia) Psychiatric History Psychiatric History Hx Psychiatric Treatment: WAS HUNG ACTED 3 days ago as well as 10 DAYS ago HERE BY THE ER DOCTOR FOR MAKING SUICIDAL AND HOMICIDAL STATEMENTS. HE WENT TO [facility]. History of Inpatient Treatment: Yes ([facility]) Guns or firearms in home: No Social History Homeless, single male. Hx Alcohol Use: No (Per records.) Hx Tobacco Use: Yes (one pack a week - Per records.) Hx Substance Use: Yes (pot/kiran, FLAKKA Per records.) Substance Use Type: Cocaine, Other Other Substances Used: FLAKKA, MARIJUANA, kiran Hx of Substance Use Treatment: No Family Psychiatric History Unknown Allergies-Medications (Allergen,Severity, Reaction): Coded Allergies: No Known Allergies (Verified , 12/18/16) Per pt. Reported Meds & Prescriptions Reported Meds & Active Scripts Active No Active Prescriptions or Reported Medications Review of Systems ROS Limitations: Uncooperative Exam Exam Limitations: Uncooperative Alert: Yes [place]: Person Mood: Agitated, Angry Affect: Other (congruent to mood) Speech: Clear, Fast Eye Contact: Staring Memory Intact: Comment (not tested) Delusions: Yes Delusion Type: Paranoid Suicidal: Ideation Homicidal: Ideation (reported on admission) Insight/Judgement poor poor. MDM Medical Decision Making Medical Record Reviewed: Yes Assessment/Plan 31 year old male with hx of substance abuse who is under a BA for homicidal ideation. as well as paranoia. At this time the patient is agitated and is verbalizing that he believes that staff has been talking about him. He will remain on BA status. Place ion [facility] list for further treatment. Orders Diet Regular Basic (12/18/16 Breakfast) Diet Regular Basic (12/18/16 Lunch) Diet Regular Basic (12/18/16 Dinner) Results Vital Signs Date Time Temp Pulse Resp B/P Pulse Ox O2 Delivery O2 Flow Rate FiO2 12/18/16 18:43 72 18 130/77 96 Room Air 12/18/16 14:48 80 18 111/77 97 Room Air 12/18/16 11:55 66 18 129/76 99 Room Air 12/18/16 07:40 98.9 78 18 133/89 98 Room Air Diagnosis Primary Impression: Drug-induced mood disorder Additional Impression: Polysubstance abuse Additional Instructions: Patient is medically cleared for psychiatric screening and disposition. Prescriptions No Active Prescriptions or Reported Meds Condition: Stable Problem Qualifiers Taylor Conner Dec 18, 2016 18:53
[2016-12-18 22:00] VITALS: BP 160/73; PULSE 81; RESP 17; O2SAT 95
== END 2016-12-19 01:46 ==
LOC: NEPJ 07:30
DX: F19.94 Other psychoactive substance use, unspecified with psychoactive substance-induced mood disorder (principal); F19.10 Other psychoactive substance abuse, uncomplicated; F41.8 Other specified anxiety disorders; I10 Essential (primary) hypertension; F12.90 Cannabis use, unspecified, uncomplicated; F15.90 Other stimulant use, unspecified, uncomplicated; Z72.0 Tobacco use; Z59.0 Homelessness
CPT/HCPCS: 99285

== ENCOUNTER 2017-06-11 22:55 | Emergency (ER) | payer SELFPAY ==
[~2017-06-11] VITALS: Ht 188 cm; Wt 86.0 kg
[2017-06-11 23:04] VITALS: BP 138/92; PULSE 83; RESP 16; TEMP 98.9; O2SAT 100
[2017-06-11] MEDS ORDERED: LIDOCAINE 2%/EPINEPHrine 1:100,000 50ML MDV ONE (23:26)
[2017-06-11] MEDS ORDERED: TETANUS/DIPHTHERIA TOXOID ADULT 0.5 ML VIAL IM ONE (23:30)
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
== END 2017-06-12 00:59 | disposition home or self-care (01) ==
LOC: NEPD 22:55
DX: S01.511A Laceration without foreign body of lip, initial encounter (principal); S01.312A Laceration without foreign body of left ear, initial encounter; Y04.2XXA Assault by strike against or bumped into by another person, initial encounter; Z23 Encounter for immunization
CPT/HCPCS: 12011; 72125; 90471; 90714

== ENCOUNTER 2017-06-12 01:29 | Emergency (ER) | payer OTHER ==
[~2017-06-12] VITALS: Ht 188 cm; Wt 84.0 kg
[2017-06-12 02:06] VITALS: BP 138/88; PULSE 76; RESP 18; TEMP 98.2; O2SAT 99
--- NOTE | 2017-06-12 03:40 | PD ---
HPI Chief Complaint: Psychiatric Symptoms Time Seen by Provider: 03:34 Travel History International Travel<30 days: No Contact w/Intl Traveler<30days: No Traveled to known affect area: No History of Present Illness HPI 31-year-old male was Hung acted brought in for psychiatric evaluation. Patient was homicidal and suicidal tonight. Patient denies any medical problem. Patient has been to the emergency room multiple times in the past for psychiatric evaluation. Patient states that he does not have any medical problem. Patient denies any routine medication. Patient denies any substance abuse. PFSH Past Medical History Anxiety: Yes (Per records.) Depression: Yes (Per records.) Cancer: No Cardiovascular Problems: Yes (high bp - Per records.) Diminished Hearing: No Endocrine: No Gastrointestinal Disorders: Yes (STOMACH ULCERS - Per records.) Genitourinary: No Hypertension: Yes (Per records.) Immune Disorder: No Implanted Vascular Access Dvce: No Musculoskeletal: Yes (Costochondritis - Per records.) Neurologic: No Psychiatric: No Respiratory: No Immunizations Current: Yes Past Surgical History Abdominal Surgery: Yes (HERNIA REPAIR - INGUINAL LEFT @ age 15 - Per records.) Cholecystectomy: Yes Other Surgery: Yes (hernia) Social History Alcohol Use: No Tobacco Use: Yes (one pack a week - Per records.) Substance Use: Yes (pot/kiran, FLAKKA Per records.) Allergies-Medications (Allergen,Severity, Reaction): Coded Allergies: No Known Allergies (Verified , 06/12/17) Per pt. Reported Meds & Prescriptions Reported Meds & Active Scripts Active No Active Prescriptions or Reported Medications Review of Systems General / Constitutional: No: Fever Eyes: No: Visual changes HENT: No: Headaches Cardiovascular: No: Chest Pain or Discomfort Respiratory: No: Shortness of Breath Gastrointestinal: No: Abdominal Pain Genitourinary: No: Dysuria Musculoskeletal: No: Pain Skin: No Rash Neurologic: No: Weakness Psychiatric: No: Depression Endocrine: No: Polydipsia Hematologic/Lymphatic: No: Easy Bruising Physical Exam Narrative GENERAL: Well-nourished, well-developed patient. SKIN: Focused skin assessment warm/dry. HEAD: Normocephalic. EYES: No scleral icterus. No injection or drainage. NECK: Supple, trachea midline. No JVD or lymphadenopathy. CARDIOVASCULAR: Regular rate and rhythm without murmurs, gallops, or rubs. RESPIRATORY: Breath sounds equal bilaterally. No accessory muscle use. GASTROINTESTINAL: Abdomen soft, non-tender, nondistended. MUSCULOSKELETAL: No cyanosis, or edema. BACK: Nontender without obvious deformity. No CVA tenderness. Neurologic exam normal. Data Data Last Documented VS Vital Signs Date Time Temp Pulse Resp B/P (MAP) Pulse Ox O2 Delivery O2 Flow Rate FiO2 06/12/17 03:44 60 18 132/70 (90) 99 Room Air 06/12/17 02:06 98.2 Orders Orders Complete Blood Count With Diff (06/12/17 03:37) Comprehensive Metabolic Panel (06/12/17 03:37) Psych Screen (06/12/17 03:37) Drug Screen, Random Urine (06/12/17 03:37) Alcohol (Ethanol) (06/12/17 03:37) Labs Laboratory Tests Test 06/12/17 03:38 White Blood Count 10.4 TH/MM3 Red Blood Count 5.00 MIL/MM3 Hemoglobin 13.7 GM/DL Hematocrit 40.4 % Mean Corpuscular Volume 80.9 FL Mean Corpuscular Hemoglobin 27.4 PG Mean Corpuscular Hemoglobin Concent 33.9 % Red Cell Distribution Width 14.7 % Platelet Count 222 TH/MM3 Mean Platelet Volume 9.2 FL Neutrophils (%) (Auto) 50.7 % Lymphocytes (%) (Auto) 34.1 % Monocytes (%) (Auto) 10.1 % Eosinophils (%) (Auto) 4.6 % Basophils (%) (Auto) 0.5 % Neutrophils # (Auto) 5.3 TH/MM3 Lymphocytes # (Auto) 3.6 TH/MM3 Monocytes # (Auto) 1.0 TH/MM3 Eosinophils # (Auto) 0.5 TH/MM3 Basophils # (Auto) 0.1 TH/MM3 CBC Comment DIFF FINAL Differential Comment Blood Urea Nitrogen 14 MG/DL Creatinine 1.16 MG/DL Random Glucose 83 MG/DL Total Protein 7.5 GM/DL Albumin 3.9 GM/DL Calcium Level 8.8 MG/DL Alkaline Phosphatase 119 U/L Aspartate Amino Transf (AST/SGOT) 28 U/L Alanine Aminotransferase (ALT/SGPT) 32 U/L Total Bilirubin 0.3 MG/DL Sodium Level 142 MEQ/L Potassium Level 4.0 MEQ/L Chloride Level 110 MEQ/L Carbon Dioxide Level 26.0 MEQ/L Anion Gap 6 MEQ/L Estimat Glomerular Filtration Rate 90 ML/MIN Ethyl Alcohol Level LESS THAN 3 MG/DL MDM Medical Decision Making Medical Screen Exam Complete: Yes Emergency Medical Condition: Yes Medical Record Reviewed: Yes Interpretation(s) CBC within normal limit. CMP within normal limit. Alcohol less than 3. Differential Diagnosis Differential diagnosis including but drug-induced mood disorder, homicidal, suicidal, depression, adjustment disorder. Narrative Course 31-year-old male with suicidal and homicidal threats. Patient was Hung acted. 7:04 AM. Patient is medically cleared for psychiatric evaluation and disposition. Scripts No Active Prescriptions or Reported Meds Jordan Toussaint MD Jun 12, 2017 03:40
[2017-06-12 03:44] VITALS: BP 132/70; PULSE 60; RESP 18; O2SAT 99
[2017-06-12 03:50] LABS: AUTOMATED NEUTROPHIL # 5.3 TH/MM3 (1.8-7.7); BASOPHIL # 0.1 TH/MM3 (0-0.2); BASOPHIL % 0.5 % (0.0-2.0); EOSINOPHIL # 0.5 TH/MM3 (0-0.4); EOSINOPHIL % 4.6 % (0.0-4.0); HEMATOCRIT 40.4 % (39.0-51.0); HEMO FLAGS DIFF FINAL; LYMPH % 34.1 % (9.0-44.0); LYMPHOCYTE # 3.6 TH/MM3 (1.0-4.8); MEAN CELL VOLUME 80.9 FL (80.0-100.0); MEAN CORPUSCULAR HEMOGLOBIN 27.4 PG (27.0-34.0); MEAN CORPUSCULAR HGB CONC 33.9 % (32.0-36.0); MONO % 10.1 % (0.0-8.0); NEUT % 50.7 % (16.0-70.0); PLATELET COUNT 222 TH/MM3 (150-450); RED CELL DISTRIBUTION WIDTH 14.7 % (11.6-17.2); WHITE BLOOD COUNT 10.4 TH/MM3 (4.0-11.0)
[2017-06-12 04:04] LABS: ALT (GPT) 32 U/L (12-78); ANION GAP 6 MEQ/L (5-15); AST (GOT) 28 U/L (15-37); BLOOD UREA NITROGEN 14 MG/DL (7-18); CHLORIDE 110 MEQ/L (98-107); GLOMERULAR FILTRATION RATE 90 ML/MIN (>89); SODIUM (NA) 142 MEQ/L (136-145)
[2017-06-12 04:06] LABS: ALKALINE PHOSPHATASE 119 U/L (45-117); TOTAL BILIRUBIN ADULT 0.3 MG/DL (0.2-1.0)
[2017-06-12 04:10] LABS: ALCOHOL LESS THAN 3 MG/DL (0-5)
[2017-06-12 08:29] VITALS: BP 131/70; PULSE 70; RESP 16; O2SAT 100
[2017-06-12 13:15] VITALS: BP 141/61; PULSE 67; RESP 17; O2SAT 97
[2017-06-12 18:19] VITALS: BP 154/95; PULSE 65; RESP 12; O2SAT 99
[2017-06-12 22:18] VITALS: BP 135/64; PULSE 71; RESP 14; O2SAT 97
[2017-06-12] MEDS ORDERED: IBUPROFEN 600 MG TAB PO ONE (23:15)
[2017-06-13 02:12] VITALS: BP 137/64; PULSE 65; RESP 18; O2SAT 97
[2017-06-13 06:00] VITALS: BP 113/62; PULSE 59; RESP 19; O2SAT 98
[2017-06-13] MEDS ORDERED: IBUPROFEN 800 MG TAB PO ONE ×2 (10:45→19:45)
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
[2017-06-13 14:00] VITALS: BP 123/59; PULSE 70; RESP 18
[2017-06-13 18:00] VITALS: BP 126/58; PULSE 66; RESP 18
[2017-06-13 22:17] VITALS: BP 117/57; PULSE 62; RESP 16; O2SAT 98
[2017-06-14 03:42] VITALS: BP 125/69; PULSE 68; RESP 16; O2SAT 100
[2017-06-14 07:03] VITALS: BP 111/67; PULSE 67; RESP 16; O2SAT 98
== END 2017-06-14 11:47 ==
LOC: NEPE 01:29 → NEPJ 06-14 11:47
DX: F43.25 Adjustment disorder with mixed disturbance of emotions and conduct (principal); F60.2 Antisocial personality disorder; F41.9 Anxiety disorder, unspecified; F32.9 Major depressive disorder, single episode, unspecified; I10 Essential (primary) hypertension; F17.200 Nicotine dependence, unspecified, uncomplicated
CPT/HCPCS: 80053; 80307; 85025; 99284

== ENCOUNTER 2017-07-01 18:52 | Emergency (ER) | payer SELFPAY ==
[~2017-07-01] VITALS: Ht 182.9 cm; Wt 100.0 kg
[~2017-07-01 18:52] MED LIST changes: -CLIN1CAP5 PO; -NAPR500 PO; +ZYPR10TA PO
[2017-07-01 18:54] VITALS: BP 141/101; PULSE 92; RESP 16; TEMP 98.6; O2SAT 98
--- NOTE | 2017-07-01 19:50 | PD ---
Physical Exam Date Seen by Provider: Jul 01, 2017 Time Seen by Provider: 19:48 Narrative 31-year-old black male presents to emergency department on a voluntary basis for psychological evaluation. Patient denies any suicidal ideation. Patient reports that he wants to hurt other people but he does not want to elaborate. The patient is guarded and does not want to answer further questions. Vital signs reviewed. Pt waiting for bed placement. Data Data Last Documented VS Vital Signs Date Time Temp Pulse Resp B/P (MAP) Pulse Ox O2 Delivery O2 Flow Rate FiO2 07/01/17 18:54 98.6 92 16 141/101 (114) 98 Room Air [facility] Medical Record Reviewed: No Supervised Visit with MACKENZIE: Fabio Sosa Jul 01, 2017 19:50
--- NOTE | 2017-07-01 21:19 | PD ---
HPI Chief Complaint: Psychiatric Symptoms Time Seen by Provider: 20:03 Travel History International Travel<30 days: No Contact w/Intl Traveler<30days: No Traveled to known affect area: No History of Present Illness HPI 31-year-old male that comes here voluntarily for evaluation of wanting to hurt someone. Patient has a history of this in the past. Patient has been here multiple times for this. This is patient's third time this month alone. Patient had blood work recently had was all negative. He does state that he sometimes self medicates with drugs but has not done so recently. Denies any alcohol. Per patient he does have contact with someone recently and this individual is Dr. Espinoza of his wanting to hurt that particular person. He would not tell me who. He denies any suicidal ideation. He's had a similar history in the past. He denies any cuts. Denies taking any medications. No fevers chills or sweats. No other medical issues. For the most part patient is not really forthcoming with information. PFSH Past Medical History Anxiety: Yes (Per records.) Depression: Yes (Per records.) Cancer: No Cardiovascular Problems: Yes (high bp - Per records.) Diminished Hearing: No Endocrine: No Gastrointestinal Disorders: Yes (STOMACH ULCERS - Per records.) Genitourinary: No Hypertension: Yes (Per records.) Immune Disorder: No Implanted Vascular Access Dvce: No Musculoskeletal: Yes (Costochondritis - Per records.) Neurologic: No Psychiatric: No Respiratory: No Immunizations Current: Yes Past Surgical History Abdominal Surgery: Yes (HERNIA REPAIR - INGUINAL LEFT @ age 15 - Per records.) Cholecystectomy: Yes Other Surgery: Yes (hernia) Social History Alcohol Use: No Tobacco Use: Yes (one pack a week - Per records.) Substance Use: Yes (FLOKKA) Allergies-Medications (Allergen,Severity, Reaction): Coded Allergies: No Known Allergies (Verified Adverse Reaction, Unknown, 07/01/17) Per pt. Reported Meds & Prescriptions Reported Meds & Active Scripts Active Zyprexa (Olanzapine) 10 Mg Tab 10 Mg PO BID Review of Systems Except as stated in HPI: all other systems reviewed are Neg Physical Exam Narrative GENERAL: SKIN: Warm and dry. HEAD: Atraumatic. Normocephalic. EYES: Pupils equal and round. No scleral icterus. No injection or drainage. ENT: No nasal bleeding or discharge. Mucous membranes pink and moist. Tongue is midline. No uvula deviation. NECK: Trachea midline. No JVD. CARDIOVASCULAR: Regular rate and rhythm. No murmurs, S3, S4. RESPIRATORY: No accessory muscle use. Clear to auscultation. Breath sounds equal bilaterally. GASTROINTESTINAL: Abdomen soft, non-tender, nondistended. Hepatic and splenic margins not palpable. MUSCULOSKELETAL: Extremities without clubbing, cyanosis, or edema. No obvious deformities. Full range of motion of the upper and lower extremities bilaterally. 2+ pulses bilaterally. NEUROLOGICAL: Awake and alert. No obvious cranial nerve deficits. Motor grossly within normal limits. Five out of 5 muscle strength in the arms and legs. Normal speech. PSYCHIATRIC: Appropriate mood and affect; insight and judgment normal. Data Data Last Documented VS Vital Signs Date Time Temp Pulse Resp B/P (MAP) Pulse Ox O2 Delivery O2 Flow Rate FiO2 07/01/17 18:54 98.6 92 16 141/101 (114) 98 Room Air Orders Orders Psych Screen (07/01/17 19:51) Drug Screen, Random Urine (07/01/17 20:04) MDM Medical Decision Making Medical Screen Exam Complete: Yes Emergency Medical Condition: Yes Medical Record Reviewed: Yes Differential Diagnosis Depression versus suicidal ideation versus anxiety versus adjustment disorder versus mood disorder versus bipolar disorder versus schizophrenia versus paranoid disorder versus psychosis versus substance abuse versus alcohol abuse versus alcohol induced psychosis versus homicidality addition versus cutting versus personality disorder Narrative Course 31-year-old male that presents to the ED for evaluation of involuntary psych. Patient was properly examined and was found to have signs and symptoms consistent with appears to be homicidal ideations. Patient has a history of this in the past. He also has a history of substance abuse and psychosis. He states that she's been using drugs but not recently. Patient had recent blood work that was essentially normal. 2 weeks ago. Do not see any need for further blood work other than possibly a drug screen patient is able to give us a sample. At this time patient is medically clear. Okay to be seen by psych. Mental health screening was discussed with the patient. Diagnosis Primary Impression: Homicidal ideations Los Santizo Jul 01, 2017 21:19
[2017-07-02 06:03] VITALS: BP 128/64; PULSE 62; RESP 18
[2017-07-02 11:42] VITALS: BP 128/64; PULSE 62; RESP 18
--- NOTE | 2017-07-02 11:46 | PD ---
History of Present Illness Chief Complaint: Psychiatric Symptoms Time Seen by Provider: 11:30 Travel History International Travel<30 Days: No Contact w/Intl Traveler<30days: No Known affected area: No Legal Status Legal Status: Hung Act History of Present Illness: 31-year-old male who is known to this physician and was recently evaluated and discharged by this physician, within the last week. Patient apparently came in with homicidal ideation on this occasion. Patient is positive for cannabinoids, as he was at his last evaluation. He is being offered transportation to [facility] for evaluation and treatment and he is voluntarily excepting this disposition. This physician continues to find the patient very manipulative and does not see evidence of significant objective clinical symptoms of a major mental illness. The patient is however homeless and continues to use drugs. His cognition is intact and he has no psychosis. This physician feels it is counter therapeutic to give into his manipulative behavior. Therefore, he is not being admitted to the psychiatry unit but rather sent for substance abuse evaluation and treatment. PFSH Past Medical History Anxiety: Yes (Per records.) Depression: Yes (Per records.) Cancer: No Cardiovascular Problems: Yes (high bp - Per records.) Diminished Hearing: No Endocrine: No Gastrointestinal Disorders: Yes (STOMACH ULCERS - Per records.) Genitourinary: No Hypertension: Yes Immune Disorder: No Implanted Vascular Access Dvce: No Musculoskeletal: Yes (Costochondritis - Per records.) Neurologic: No Psychiatric: No Respiratory: No Immunizations Current: Yes Past Surgical History Abdominal Surgery: Yes (HERNIA REPAIR - INGUINAL LEFT @ age 15 - Per records.) Cholecystectomy: Yes Other Surgery: Yes (hernia) Psychiatric History Psychiatric History Hx Psychiatric Treatment: HX: ADJUSTMENT DISORDER, DRUG INDUCED MOOD DISORDER. This wasn't this physician feels the patient's primary problem remains drug abuse, unwillingness to work and homelessness. History of Inpatient Treatment: Yes Guns or firearms in home: No Social History Hx Alcohol Use: No Hx Tobacco Use: Yes (one pack a week - Per records.) Hx Substance Use: Yes (MATTHIAS) Substance Use Type: Marijuana Other Substances Used: PT. DENIED TAKING ANY DRUGS AND STATED HE USED TO TAKE THEM Hx of Substance Use Treatment: No Allergies-Medications (Allergen,Severity, Reaction): Coded Allergies: No Known Allergies (Verified Adverse Reaction, Unknown, 07/01/17) Per pt. Reported Meds & Prescriptions Reported Meds & Active Scripts Active Zyprexa (Olanzapine) 10 Mg Tab 10 Mg PO BID Review of Systems Except as stated in HPI: all other systems reviewed are Neg Mental Status Examination Appearance: Appropriate Consciousness: Alert Orientation: x4 Motor Activity: Normal gait Speech: Unremarkable Language: Adequate Fund of Knowledge: Adequate Attention and Concentration: Adequate Memory: Unremarkable Mood: Appropriate Affect: Appropriate Thought Process & Associations: Intact Thought Content: Appropriate Hallucination Type: None Delusion Type: None Suicidal Ideation: No Suicidal Plan: No Suicidal Intention: No Homicidal Ideation: Yes Homicidal Plan: No Homicidal Intention: No Insight: Adequate Judgment: Adequate MDM Medical Decision Making Medical Record Reviewed: Yes Assessment/Plan Patient interviewed at bedside, medical record reviewed extensively and case discussed with nurse Lang. Patient is being discharged with [facility] as is to [facility]. Again, despite the patient's threats, this physician feels it is counter therapeutic to admit him to the psychiatry service. If he is however interested in treatment for his drug abuse, this physician has provided the means for him to go for treatment. Orders Orders Psych Screen (07/01/17 19:51) Drug Screen, Random Urine (07/01/17 20:04) Diet Regular Basic (07/02/17 Breakfast) Diet Regular Basic (07/02/17 Lunch) Results Vital Signs Date Time Temp Pulse Resp B/P (MAP) Pulse Ox O2 Delivery O2 Flow Rate FiO2 07/02/17 06:03 62 18 128/64 (85) 07/01/17 18:54 98.6 92 16 141/101 (114) 98 Room Air Laboratory Tests Test 07/02/17 00:40 Urine Opiates Screen NEG Urine Barbiturates Screen NEG Urine Amphetamines Screen NEG Urine Benzodiazepines Screen NEG Urine Cocaine Screen NEG Urine Cannabinoids Screen POS Diagnosis Primary Impression: Adjustment disorder with mixed disturbance of emotions and conduct Additional Impression: Cannabis abuse Problem Qualifiers Audie Forrester MD Jul 02, 2017 11:46
--- NOTE | 2017-07-02 13:12 | PD ---
Physical Exam Time Seen by Provider: 13:00 Data Data Last Documented VS Vital Signs Date Time Temp Pulse Resp B/P (MAP) Pulse Ox O2 Delivery O2 Flow Rate FiO2 07/02/17 11:42 62 18 128/64 (85) Room Air 07/01/17 18:54 98.6 98 Orders Orders Psych Screen (07/01/17 19:51) Drug Screen, Random Urine (07/01/17 20:04) Diet Regular Basic (07/02/17 Breakfast) Diet Regular Basic (07/02/17 Lunch) Labs Laboratory Tests Test 07/02/17 00:40 Urine Opiates Screen NEG Urine Barbiturates Screen NEG Urine Amphetamines Screen NEG Urine Benzodiazepines Screen NEG Urine Cocaine Screen NEG Urine Cannabinoids Screen POS MDM Medical Record Reviewed: Yes Supervised Visit with MACKENZIE: No Narrative Course Please see previous provider's notes for complete history of present illness. This patient has been seen by psychiatry and psychiatrically cleared. He has no medical condition that would warrant additional hospitalization. The psychiatry team has developed a plan to send this patient by bus to [facility]. The patient is agreeable to this. He is stable for discharge. Diagnosis Primary Impression: Adjustment disorder with mixed disturbance of emotions and conduct Additional Impression: Cannabis abuse Referrals: [facility] Pt SpecificInfo: No Change to Meds Disposition: 01 DISCHARGE HOME Condition: Stable Livan Boraj Jul 02, 2017 13:12
== END 2017-07-02 16:19 | disposition home or self-care (01) ==
LOC: NEPJ 18:52
DX: F43.25 Adjustment disorder with mixed disturbance of emotions and conduct (principal); R45.850 Homicidal ideations; I10 Essential (primary) hypertension; F12.10 Cannabis abuse, uncomplicated; Z72.0 Tobacco use; Z79.899 Other long term (current) drug therapy
CPT/HCPCS: 80307; 99284

== ENCOUNTER 2017-07-10 18:09 | Emergency (ER) | payer SELFPAY ==
[2017-07-10 18:10] VITALS: BP 128/84; PULSE 68; RESP 12; TEMP 99.1; O2SAT 96
--- NOTE | 2017-07-10 21:26 | PD ---
HPI Chief Complaint: Psychiatric Symptoms Time Seen by Provider: 21:13 Travel History International Travel<30 days: No Contact w/Intl Traveler<30days: No Traveled to known affect area: No History of Present Illness HPI 31yo M with PMH of substance abuse and psychosis here requesting to see a psychiatrist. States he has been having auditory and visual hallucinations for 2 weeks. Denies any suicidal or homicidal ideations currently. Admits to flakka use sometimes. Denies any fever, chest pain, sob, n/v, abdominal pain, focal weakness or numbness, or fall. PFSH Past Medical History ADHD: Yes Anxiety: Yes (Per records.) Depression: Yes (Per records.) Cancer: No Cardiovascular Problems: Yes (high bp - Per records.) Diminished Hearing: No Endocrine: No Gastrointestinal Disorders: Yes (STOMACH ULCERS - Per records.) Genitourinary: No Hypertension: Yes Immune Disorder: No Implanted Vascular Access Dvce: No Musculoskeletal: Yes (Costochondritis - Per records.) Neurologic: No Psychiatric: No Respiratory: No Immunizations Current: Yes Influenza Vaccination: No Past Surgical History Abdominal Surgery: Yes (HERNIA REPAIR - INGUINAL LEFT @ age 15 - Per records.) Cholecystectomy: Yes Other Surgery: Yes (hernia) Social History Alcohol Use: No Tobacco Use: Yes (one pack a week - Per records.) Substance Use: Yes (FLAKKA) Allergies-Medications (Allergen,Severity, Reaction): Coded Allergies: No Known Allergies (Verified Adverse Reaction, Unknown, 07/10/17) Per pt. Reported Meds & Prescriptions Reported Meds & Active Scripts Active Zyprexa (Olanzapine) 10 Mg Tab 10 Mg PO BID Review of Systems Except as stated in HPI: all other systems reviewed are Neg Physical Exam Narrative GENERAL: 31yo M in mild distress. SKIN: Focused skin assessment warm/dry. HEAD: Atraumatic. Normocephalic. EYES: Pupils equal and round at 4mm bilaterally. EOMI. No scleral icterus. No injection or drainage. ENT: No nasal bleeding or discharge. Mucous membranes pink and moist. NECK: Trachea midline. No JVD. CARDIOVASCULAR: Regular rate and rhythm. No murmur appreciated. RESPIRATORY: No accessory muscle use. Clear to auscultation. Breath sounds equal bilaterally. GASTROINTESTINAL: Abdomen soft, non-tender, nondistended. MUSCULOSKELETAL: No obvious deformities. No clubbing. No cyanosis. No edema. NEUROLOGICAL: Awake and alert. No obvious cranial nerve deficits. Motor grossly within normal limits. Normal speech. PSYCHIATRIC: Flight of ideas; insight and judgment abnormal. Data Data Last Documented VS Vital Signs Date Time Temp Pulse Resp B/P (MAP) Pulse Ox O2 Delivery O2 Flow Rate FiO2 07/10/17 21:00 20 07/10/17 18:10 99.1 68 128/84 (99) 96 Orders Orders Complete Blood Count With Diff (07/10/17 21:21) Basic Metabolic Panel (Bmp) (07/10/17 21:21) Psych Screen (07/10/17 21:21) Drug Screen, Random Urine (07/10/17 21:21) Alcohol (Ethanol) (07/10/17 21:21) Ed Discharge Order (07/11/17 02:35) Labs Laboratory Tests Test 07/10/17 22:45 White Blood Count 5.3 TH/MM3 Red Blood Count 4.82 MIL/MM3 Hemoglobin 13.0 GM/DL Hematocrit 39.2 % Mean Corpuscular Volume 81.3 FL Mean Corpuscular Hemoglobin 27.0 PG Mean Corpuscular Hemoglobin Concent 33.2 % Red Cell Distribution Width 14.9 % Platelet Count 230 TH/MM3 Mean Platelet Volume 8.2 FL Neutrophils (%) (Auto) 22.5 % Lymphocytes (%) (Auto) 51.5 % Monocytes (%) (Auto) 17.0 % Eosinophils (%) (Auto) 8.4 % Basophils (%) (Auto) 0.6 % Neutrophils # (Auto) 1.2 TH/MM3 Lymphocytes # (Auto) 2.7 TH/MM3 Monocytes # (Auto) 0.9 TH/MM3 Eosinophils # (Auto) 0.4 TH/MM3 Basophils # (Auto) 0.0 TH/MM3 CBC Comment DIFF FINAL Differential Comment Blood Urea Nitrogen 13 MG/DL Creatinine 1.16 MG/DL Random Glucose 97 MG/DL Calcium Level 8.6 MG/DL Sodium Level 140 MEQ/L Potassium Level 3.8 MEQ/L Chloride Level 104 MEQ/L Carbon Dioxide Level 25.3 MEQ/L Anion Gap 11 MEQ/L Estimat Glomerular Filtration Rate 90 ML/MIN Urine Opiates Screen NEG Urine Barbiturates Screen NEG Urine Amphetamines Screen NEG Urine Benzodiazepines Screen NEG Urine Cocaine Screen NEG Urine Cannabinoids Screen POS Ethyl Alcohol Level LESS THAN 3 MG/DL MDM Medical Decision Making Medical Screen Exam Complete: Yes Emergency Medical Condition: Yes Differential Diagnosis Psychosis vs. drug induced psychosis Narrative Course 31yo M with hallucination requesting to see a psychiatrist. Labs reviewed, no leukocytosis. BMP unremarkable. Alcohol negative. Utox positive for cannabinoids. Vital signs stable. Pt is medically clear for psych evaluation. Pt is voluntary and denies any suicidal or homicidal ideations. Diagnosis Primary Impression: Auditory hallucination Ann aLl DO Jul 10, 2017 21:26
[2017-07-10 23:16] LABS: AUTOMATED NEUTROPHIL # 1.2 TH/MM3 (1.8-7.7); BASOPHIL % 0.6 % (0.0-2.0); EOSINOPHIL # 0.4 TH/MM3 (0-0.4); EOSINOPHIL % 8.4 % (0.0-4.0); HEMATOCRIT 39.2 % (39.0-51.0); HEMO FLAGS DIFF FINAL; LYMPH % 51.5 % (9.0-44.0); LYMPHOCYTE # 2.7 TH/MM3 (1.0-4.8); MEAN CELL VOLUME 81.3 FL (80.0-100.0); MEAN CORPUSCULAR HGB CONC 33.2 % (32.0-36.0); NEUT % 22.5 % (16.0-70.0); PLATELET COUNT 230 TH/MM3 (150-450); RED BLOOD COUNT 4.82 MIL/MM3 (4.50-5.90); RED CELL DISTRIBUTION WIDTH 14.9 % (11.6-17.2); WHITE BLOOD COUNT 5.3 TH/MM3 (4.0-11.0)
[2017-07-10 23:39] LABS: ANION GAP 11 MEQ/L (5-15); BICARBONATE 25.3 MEQ/L (21.0-32.0); BLOOD UREA NITROGEN 13 MG/DL (7-18); CHLORIDE 104 MEQ/L (98-107); GLOMERULAR FILTRATION RATE 90 ML/MIN (>89); POTASSIUM 3.8 MEQ/L (3.5-5.1); SODIUM (NA) 140 MEQ/L (136-145)
[2017-07-10 23:45] LABS: ALCOHOL LESS THAN 3 MG/DL (0-5)
--- NOTE | 2017-07-11 01:29 | PD ---
History of Present Illness Chief Complaint: Psychiatric Symptoms Time Seen by Provider: 00:45 Travel History International Travel<30 Days: No Contact w/Intl Traveler<30days: No Known affected area: No Legal Status Legal Status: Voluntary History of Present Illness: History of Present Illness Patient is a 31 year old M with PMH of substance abuse, adjustment disorder, well known to this underwriter and to the psychiatry department for multiple visits, who presents to the emergency department requesting to see a psychiatrist and to receive a complete evaluation. He complained to the ED provider that he he has been having auditory and visual hallucinations for 2 weeks. Admits to flakka use sometimes with having used earlier today. The patient was evaluated by Dr. Audie Forrester on July 01, 2017 and was discharged with recommendation to follow-up treatment at [facility]. He tells me that he doesn't want to go to [facility] and because he feels that people do not talk with him when he goes there. The patient is alert, oriented, calm. He is casually and neatly dressed with appropriate hygiene. He is requesting an evaluation so that he can fine treatment for substance abuse. He goes on to state that he does not want to go to [facility] and he wants to find another facility. He denies suicidal or homicidal ideation, intent or plan. He explicitly describes the requirements that he is looking for in a facility. The patient also reports that he is hearing voices although he does not appear internally preoccupied and is not observed responding to internal stimuli. When asked about psychiatric medications he states that he does not like to take medication that is prescribed to him at [facility] for various reasons. It is noted that on July 01 he was given a prescription for Zyprexa but he has failed to get this prescription. At this time he does not mean criteria for inpatient psychiatric care. He is requesting referrals for facilities that could provide treatment for his substance abuse. Mr. Ramesh is resistant to answering questions better part of this evaluation. He wants to be in charge of the evacuation and wants to only answer the questions that he feels are relevant. PFSH Past Medical History ADHD: Yes Anxiety: Yes (Per records.) Depression: Yes (Per records.) Cancer: No Cardiovascular Problems: Yes (high bp - Per records.) Diminished Hearing: No Endocrine: No Gastrointestinal Disorders: Yes (STOMACH ULCERS - Per records.) Genitourinary: No Hypertension: Yes Immune Disorder: No Implanted Vascular Access Dvce: No Musculoskeletal: Yes (Costochondritis - Per records.) Neurologic: No Psychiatric: No Respiratory: No Immunizations Current: Yes Influenza Vaccination: No Past Surgical History Abdominal Surgery: Yes (HERNIA REPAIR - INGUINAL LEFT @ age 15 - Per records.) Cholecystectomy: Yes Other Surgery: Yes (hernia) Psychiatric History Psychiatric History Hx Psychiatric Treatment: HX: ADJUSTMENT DISORDER, DRUG INDUCED MOOD DISORDER. History of Inpatient Treatment: Yes Guns or firearms in home: No Social History Single, unemployed, homeless. Hx Alcohol Use: No Hx Tobacco Use: Yes (one pack a week - Per records.) Hx Substance Use: Yes (FLAKKA) Substance Use Type: Marijuana Other Substances Used: PT. DENIED TAKING ANY DRUGS AND STATED HE USED TO TAKE THEM Hx of Substance Use Treatment: No Family Psychiatric History None reported Allergies-Medications (Allergen,Severity, Reaction): Coded Allergies: No Known Allergies (Verified Adverse Reaction, Unknown, 07/10/17) Per pt. Reported Meds & Prescriptions Reported Meds & Active Scripts Active Zyprexa (Olanzapine) 10 Mg Tab 10 Mg PO BID Review of Systems ROS Limitations: Uncooperative (he does not want to answer questions.) Mental Status Examination Appearance: Appropriate Consciousness: Alert Orientation: x4 Motor Activity: Normal gait Speech: Unremarkable Language: Adequate Fund of Knowledge: Adequate Attention and Concentration: Adequate Memory: Unremarkable Mood: Appropriate Affect: Appropriate Thought Process & Associations: Linear Thought Content: Appropriate Hallucination Type: Auditory (he reports hearing voices but does not appear to be internally preoccupied.) Delusion Type: None Suicidal Ideation: No Suicidal Plan: No Suicidal Intention: No Homicidal Ideation: No Homicidal Plan: No Homicidal Intention: No Insight: Poor Judgment: Impulsive MDM Medical Decision Making Medical Record Reviewed: Yes Assessment/Plan Patient is a 31 year old M with PMH of substance abuse, adjustment disorder, well known to this underwriter and to the psychiatry department for multiple visits, who presents to the emergency department requesting to see a psychiatrist and to receive a complete evaluation. He complained to the ED provider that he he has been having auditory and visual hallucinations for 2 weeks. Admits to flakka use sometimes with having used earlier today. The patient was evaluated most recently by Dr. Audie Forrester on July 01, 2017 and was discharged with recommendation to follow-up treatment at [facility]. He tells me that he doesn't want to go to [facility] and because he feels that people do not talk with him when he goes there. At this time the patient does not meet criteria for psychiatric inpatient treatment. He is cognitively intact. He is requesting evaluation for substance abuse treatment. I strongly suspect that his presentation is malingered in order to obtain retirement. Orders Orders Complete Blood Count With Diff (07/10/17 21:21) Basic Metabolic Panel (Bmp) (07/10/17 21:21) Psych Screen (07/10/17 21:21) Drug Screen, Random Urine (07/10/17 21:21) Alcohol (Ethanol) (07/10/17 21:21) Results Vital Signs Date Time Temp Pulse Resp B/P (MAP) Pulse Ox O2 Delivery O2 Flow Rate FiO2 07/10/17 21:00 20 07/10/17 18:10 99.1 68 12 128/84 (99) 96 Laboratory Tests Test 07/10/17 22:45 White Blood Count 5.3 Red Blood Count 4.82 Hemoglobin 13.0 Hematocrit 39.2 Mean Corpuscular Volume 81.3 Mean Corpuscular Hemoglobin 27.0 Mean Corpuscular Hemoglobin Concent 33.2 Red Cell Distribution Width 14.9 Platelet Count 230 Mean Platelet Volume 8.2 Neutrophils (%) (Auto) 22.5 Lymphocytes (%) (Auto) 51.5 Monocytes (%) (Auto) 17.0 Eosinophils (%) (Auto) 8.4 Basophils (%) (Auto) 0.6 Neutrophils # (Auto) 1.2 Lymphocytes # (Auto) 2.7 Monocytes # (Auto) 0.9 Eosinophils # (Auto) 0.4 Basophils # (Auto) 0.0 CBC Comment DIFF FINAL Differential Comment Blood Urea Nitrogen 13 Creatinine 1.16 Random Glucose 97 Calcium Level 8.6 Sodium Level 140 Potassium Level 3.8 Chloride Level 104 Carbon Dioxide Level 25.3 Anion Gap 11 Estimat Glomerular Filtration Rate 90 Urine Opiates Screen NEG Urine Barbiturates Screen NEG Urine Amphetamines Screen NEG Urine Benzodiazepines Screen NEG Urine Cocaine Screen NEG Urine Cannabinoids Screen POS Ethyl Alcohol Level LESS THAN 3 Diagnosis Primary Impression: Polysubstance abuse Ruled Out: Auditory hallucination Psychiatrically Cleared: Yes Disposition: 01 DISCHARGE HOME Condition: Stable Taylor Conner Jul 11, 2017 01:29
--- NOTE | 2017-07-11 02:37 | PD ---
Physical Exam Date Seen by Provider: Jul 11, 2017 Time Seen by Provider: 02:35 Data Data Last Documented VS Vital Signs Date Time Temp Pulse Resp B/P (MAP) Pulse Ox O2 Delivery O2 Flow Rate FiO2 07/10/17 21:00 20 07/10/17 18:10 99.1 68 128/84 (99) 96 Orders Orders Complete Blood Count With Diff (07/10/17 21:21) Basic Metabolic Panel (Bmp) (07/10/17 21:21) Psych Screen (07/10/17 21:21) Drug Screen, Random Urine (07/10/17 21:21) Alcohol (Ethanol) (07/10/17 21:21) Ed Discharge Order (07/11/17 02:35) Labs Laboratory Tests Test 07/10/17 22:45 White Blood Count 5.3 TH/MM3 Red Blood Count 4.82 MIL/MM3 Hemoglobin 13.0 GM/DL Hematocrit 39.2 % Mean Corpuscular Volume 81.3 FL Mean Corpuscular Hemoglobin 27.0 PG Mean Corpuscular Hemoglobin Concent 33.2 % Red Cell Distribution Width 14.9 % Platelet Count 230 TH/MM3 Mean Platelet Volume 8.2 FL Neutrophils (%) (Auto) 22.5 % Lymphocytes (%) (Auto) 51.5 % Monocytes (%) (Auto) 17.0 % Eosinophils (%) (Auto) 8.4 % Basophils (%) (Auto) 0.6 % Neutrophils # (Auto) 1.2 TH/MM3 Lymphocytes # (Auto) 2.7 TH/MM3 Monocytes # (Auto) 0.9 TH/MM3 Eosinophils # (Auto) 0.4 TH/MM3 Basophils # (Auto) 0.0 TH/MM3 CBC Comment DIFF FINAL Differential Comment Blood Urea Nitrogen 13 MG/DL Creatinine 1.16 MG/DL Random Glucose 97 MG/DL Calcium Level 8.6 MG/DL Sodium Level 140 MEQ/L Potassium Level 3.8 MEQ/L Chloride Level 104 MEQ/L Carbon Dioxide Level 25.3 MEQ/L Anion Gap 11 MEQ/L Estimat Glomerular Filtration Rate 90 ML/MIN Urine Opiates Screen NEG Urine Barbiturates Screen NEG Urine Amphetamines Screen NEG Urine Benzodiazepines Screen NEG Urine Cocaine Screen NEG Urine Cannabinoids Screen POS Ethyl Alcohol Level LESS THAN 3 MG/DL MDM Medical Record Reviewed: Yes Supervised Visit with MACKENZIE: Yes Differential Diagnosis . Narrative Course This patient was seen and evaluated by the psych nurse practitioner. The patient has also recently been seen by our psychiatrist. The patient is noncompliant. They do not believe that the patient is truly a threat to himself or others. They feel that his presents today is a malingering action. He is given outpatient treatment options. They feel he is safe to go home. The patient has been medically cleared and will be discharged home. Diagnosis Primary Impression: Polysubstance abuse Ruled Out: Auditory hallucination Patient Instructions: General Instructions Additional Instruction: Rest. Increase fluids. Avoid alcohol. Avoid illegal substances. Follow-up with [facility] for detox. Do not operate a car or any heavy machinery under the influence of alcohol or drugs. Follow-up with a medical doctor this week. Return to the ER for emergencies Med/Other Pt SpecificInfo: No Meds Exist/No RX given Disposition: 01 DISCHARGE HOME Condition: Stable Fabio Ruffin Jul 11, 2017 02:37
== END 2017-07-11 05:55 | disposition home or self-care (01) ==
LOC: NEPD 18:09
DX: F19.10 Other psychoactive substance abuse, uncomplicated (principal); F43.20 Adjustment disorder, unspecified; R44.0 Auditory hallucinations; R44.1 Visual hallucinations; F34.81 Disruptive mood dysregulation disorder; F90.9 Attention-deficit hyperactivity disorder, unspecified type; F17.200 Nicotine dependence, unspecified, uncomplicated; Z76.5 Malingerer [conscious simulation]; Z59.0 Homelessness
CPT/HCPCS: 80048; 80307; 85025; 99283

== ENCOUNTER 2017-07-19 05:54 | Emergency (ER) | payer OTHER ==
[~2017-07-19] VITALS: Ht 188 cm; Wt 88.6 kg
[2017-07-19 06:04] VITALS: BP 133/83; PULSE 79; RESP 20; TEMP 97.8; O2SAT 100
--- NOTE | 2017-07-19 06:14 | PD ---
HPI Chief Complaint: depression with SI ideation Time Seen by Provider: 06:03 Travel History International Travel<30 days: No Contact w/Intl Traveler<30days: No History of Present Illness [place] called , pt then made statement if he ' didn't get some help he was going to hurt himself or someone else.' pt is healthy appearing adult and denies and medical history he is wearing dirty clothes. Pt has smell of an unwashed person, strong odor.. pt then is helped by nurses to change into hospital paper scrubs , I ask him if he has any medical complaints and he denies, He says I might have something wrong with my kidneys " because I have to pee alot" asked if he has DM , pt denies, Will order psych eval labs and re-eval. PFSH Past Medical History ADHD: Yes Anxiety: Yes (Per records.) Depression: Yes (Per records.) Cancer: No Cardiovascular Problems: Yes (high bp - Per records.) Diminished Hearing: No Endocrine: No Gastrointestinal Disorders: Yes (STOMACH ULCERS - Per records.) Genitourinary: No Hypertension: Yes Immune Disorder: No Implanted Vascular Access Dvce: No Musculoskeletal: Yes (Costochondritis - Per records.) Neurologic: No Psychiatric: No Respiratory: No Immunizations Current: Yes Past Surgical History Abdominal Surgery: Yes (HERNIA REPAIR - INGUINAL LEFT @ age 15 - Per records.) Cholecystectomy: Yes Other Surgery: Yes (hernia) Social History Alcohol Use: No Tobacco Use: Yes (one pack a week - Per records.) Substance Use: Yes (MATTHIAS) Allergies-Medications (Allergen,Severity, Reaction): Coded Allergies: No Known Allergies (Verified Adverse Reaction, Unknown, 07/10/17) Per pt. Reported Meds & Prescriptions Reported Meds & Active Scripts Active Review of Systems Except as stated in HPI: all other systems reviewed are Neg General / Constitutional: No: Fever HENT: No: Headaches Cardiovascular: No: Chest Pain or Discomfort Respiratory: No: Cough, Shortness of Breath Gastrointestinal: No: Nausea, Vomiting, Abdominal Pain Physical Exam Narrative GENERAL: dirty clothes , healthy appear young male but smells unwashed SKIN: Warm and dry. HEAD: Atraumatic. Normocephalic. EYES: Pupils equal and round. No scleral icterus. No injection or drainage. ENT: No nasal bleeding or discharge. Mucous membranes pink and moist. NECK: Trachea midline. No JVD. CARDIOVASCULAR: Regular rate and rhythm. RESPIRATORY: No accessory muscle use. Clear to auscultation. Breath sounds equal bilaterally. GASTROINTESTINAL: Abdomen soft, non-tender, nondistended. Hepatic and splenic margins not palpable. MUSCULOSKELETAL: Extremities without clubbing, cyanosis, or edema. No obvious deformities. NEUROLOGICAL: Awake and alert. No obvious cranial nerve deficits. Motor grossly within normal limits. Five out of 5 muscle strength in the arms and legs. Normal speech. PSYCHIATRIC: Appropriate mood and affect; insight and judgment normal. Data Data Last Documented VS Orders Orders Complete Blood Count With Diff (07/19/17 06:27) Comprehensive Metabolic Panel (07/19/17 06:27) Thyroid Stimulating Hormone (07/19/17 06:27) Blood Glucose (07/19/17 06:27) Ecg Monitoring (07/19/17 06:27) Iv Access Insert/Monitor (07/19/17 06:27) Oximetry (07/19/17 06:27) Sodium Chloride 0.9% Flush (Ns Flush) (07/19/17 06:30) Salicylates (Aspirin) (07/19/17 06:27) Iv Access Insert/Monitor (07/19/17 06:27) Ecg Monitoring (07/19/17 06:27) Sodium Chloride 0.9% Flush (Ns Flush) (07/19/17 06:30) Tylenol (Acetaminophen) (07/19/17 06:20) Alcohol (Ethanol) (07/19/17 06:20) Psych Screen (07/19/17 07:15) Ed Discharge Order (07/19/17 12:08) Labs Laboratory Tests Test 07/19/17 06:20 White Blood Count 6.2 TH/MM3 Red Blood Count 4.68 MIL/MM3 Hemoglobin 12.8 GM/DL Hematocrit 38.5 % Mean Corpuscular Volume 82.3 FL Mean Corpuscular Hemoglobin 27.3 PG Mean Corpuscular Hemoglobin Concent 33.2 % Red Cell Distribution Width 15.0 % Platelet Count 242 TH/MM3 Mean Platelet Volume 8.2 FL Neutrophils (%) (Auto) 46.1 % Lymphocytes (%) (Auto) 39.3 % Monocytes (%) (Auto) 9.6 % Eosinophils (%) (Auto) 4.5 % Basophils (%) (Auto) 0.5 % Neutrophils # (Auto) 2.8 TH/MM3 Lymphocytes # (Auto) 2.4 TH/MM3 Monocytes # (Auto) 0.6 TH/MM3 Eosinophils # (Auto) 0.3 TH/MM3 Basophils # (Auto) 0.0 TH/MM3 CBC Comment DIFF FINAL Differential Comment Blood Urea Nitrogen 12 MG/DL Creatinine 1.13 MG/DL Random Glucose 102 MG/DL Total Protein 7.3 GM/DL Albumin 3.7 GM/DL Calcium Level 8.4 MG/DL Alkaline Phosphatase 104 U/L Aspartate Amino Transf (AST/SGOT) 29 U/L Alanine Aminotransferase (ALT/SGPT) 31 U/L Total Bilirubin 0.3 MG/DL Sodium Level 142 MEQ/L Potassium Level 3.8 MEQ/L Chloride Level 109 MEQ/L Carbon Dioxide Level 26.6 MEQ/L Anion Gap 6 MEQ/L Estimat Glomerular Filtration Rate 93 ML/MIN Thyroid Stimulating Hormone 3rd Gen 0.703 uIU/ML Salicylates Level 2.5 MG/DL Acetaminophen Level LESS THAN 2.0 MCG/ML Ethyl Alcohol Level LESS THAN 3 MG/DL MDM Medical Decision Making Medical Screen Exam Complete: Yes Emergency Medical Condition: Yes Differential Diagnosis substance induced HI SI vs malingering vs schizophrenia, vs homelessness and social issues vs true psych illness Narrative Course pt cleaned up by nursing staff and he is cooperative and related and does not appear to have an active psychotic thought process, no signs of depression , no signs of agitation no overt aggression in ER Braden Garcia MD Jul 19, 2017 06:14
[2017-07-19] MEDS ORDERED: SODIUM CHLORIDE 0.9% FLUSH 5 ML FLUSH IV FLUSH PRN (06:30)
[2017-07-19] MEDS ORDERED: SODIUM CHLORIDE 0.9% FLUSH 10 ML FLUSH IVF PRN (06:30)
[2017-07-19 06:55] LABS: AUTOMATED NEUTROPHIL # 2.8 TH/MM3 (1.8-7.7); BASOPHIL % 0.5 % (0.0-2.0); EOSINOPHIL # 0.3 TH/MM3 (0-0.4); EOSINOPHIL % 4.5 % (0.0-4.0); HEMATOCRIT 38.5 % (39.0-51.0); HEMO FLAGS DIFF FINAL; LYMPH % 39.3 % (9.0-44.0); LYMPHOCYTE # 2.4 TH/MM3 (1.0-4.8); MEAN CELL VOLUME 82.3 FL (80.0-100.0); MEAN CORPUSCULAR HEMOGLOBIN 27.3 PG (27.0-34.0); MEAN CORPUSCULAR HGB CONC 33.2 % (32.0-36.0); MONO % 9.6 % (0.0-8.0); NEUT % 46.1 % (16.0-70.0); PLATELET COUNT 242 TH/MM3 (150-450); RED BLOOD COUNT 4.68 MIL/MM3 (4.50-5.90); WHITE BLOOD COUNT 6.2 TH/MM3 (4.0-11.0)
[2017-07-19 07:13] LABS: ANION GAP 6 MEQ/L (5-15); AST (GOT) 29 U/L (15-37); BICARBONATE 26.6 MEQ/L (21.0-32.0); BLOOD UREA NITROGEN 12 MG/DL (7-18); CHLORIDE 109 MEQ/L (98-107); GLOMERULAR FILTRATION RATE 93 ML/MIN (>89); POTASSIUM 3.8 MEQ/L (3.5-5.1); SODIUM (NA) 142 MEQ/L (136-145)
[2017-07-19 07:24] LABS: ALKALINE PHOSPHATASE 104 U/L (45-117); ALT (GPT) 31 U/L (12-78); TOTAL BILIRUBIN ADULT 0.3 MG/DL (0.2-1.0)
[2017-07-19 07:33] LABS: ALCOHOL LESS THAN 3 MG/DL (0-5)
[2017-07-19 07:38] LABS: ACETAMINOPHEN LESS THAN 2.0 MCG/ML (10.0-30.0)
[2017-07-19 08:29] VITALS: BP 131/85; PULSE 74; RESP 16; O2SAT 99
--- NOTE | 2017-07-19 10:51 | PD ---
History of Present Illness Chief Complaint: Psychiatric Symptoms Time Seen by Provider: 10:30 Travel History International Travel<30 Days: No Contact w/Intl Traveler<30days: No Known affected area: No Legal Status Legal Status: Hung Act Hung Act Signed By: Chilo Michele History of Present Illness: History of Present Illness HPI Patient is a 31-year-old male known to [facility] and to this provider, history of substance abuse including reported use of Isabel with multiple visits to the ED, who presents under a Hung act initiated by law enforcement officers. The patient reported to police that he was going to her and harm someone if he did not get help. He did not say how he was going to harm someone and he did not specifically name anyone. He repeated to them that he will harm someone if they did not do anything to help him. Patient usually presents in a hostile as well as demanding manner. This morning he was assisted to a shower by staff. He did then demanded to have breakfast and something to drink. He becomes easily agitated when his demands are not met immediately by staff. He does not appear to be responding to internal stimuli, does not appear to be manic, does not appear to be depressed, he rather presents in a very manipulative and demanding manner and is verbally abusive toward staff members. while staff member where preparing a meal for him in the microwave he became very demanding because it was taking too long. He then began to demand to be let go from [facility]. He continued to verbally abuse and threatened staff including making statements that if he saw staff outside he would assault them. Once again he does not appear to be psychotic but rather is relating in a demanding manner with strong antisocial traits. PFSH Past Medical History ADHD: Yes Anxiety: Yes Depression: Yes Cancer: No Cardiovascular Problems: Yes (high bp - Per records.) Diminished Hearing: No Endocrine: No Gastrointestinal Disorders: Yes (STOMACH ULCERS - Per records.) Genitourinary: No Hypertension: Yes (no per patient at this time 07/19/17) Immune Disorder: No Implanted Vascular Access Dvce: No Musculoskeletal: Yes (Costochondritis - Per records.) Neurologic: No Psychiatric: No Respiratory: No Immunizations Current: Yes Tetanus Vaccination: > 5 Years Influenza Vaccination: No Past Surgical History Abdominal Surgery: Yes (HERNIA REPAIR - INGUINAL LEFT @ age 15 - Per records.) Cholecystectomy: Yes Other Surgery: Yes (hernia/nasal polyps) Psychiatric History Psychiatric History Hx Psychiatric Treatment: HX: ADJUSTMENT DISORDER, DRUG INDUCED MOOD DISORDER. History of Inpatient Treatment: Yes Guns or firearms in home: No Social History Single, homeless. Hx Alcohol Use: Yes (occ) Hx Tobacco Use: Yes (3 cigs day) Hx Substance Use: Yes (hx of FLAKKA 2 weeks ago) Substance Use Type: Marijuana Other Substances Used: patient with history of using Isabel Hx of Substance Use Treatment: Yes Family Psychiatric History Unknown Allergies-Medications (Allergen,Severity, Reaction): Coded Allergies: No Known Allergies (Verified Adverse Reaction, Unknown, 07/10/17) Per pt. Reported Meds & Prescriptions Reported Meds & Active Scripts Active Review of Systems ROS Limitations: Uncooperative Mental Status Examination Appearance: Dirty, Malodorous Consciousness: Alert Orientation: x4 Motor Activity: Normal gait Speech: Unremarkable Language: Adequate Fund of Knowledge: Adequate Attention and Concentration: Adequate Memory: Unremarkable Mood: Angry, Oppositional Affect: Appropriate Thought Process & Associations: Intact Thought Content: Appropriate Hallucination Type: None Delusion Type: None Suicidal Ideation: No Suicidal Plan: No Suicidal Intention: No Homicidal Ideation: No Homicidal Plan: No Homicidal Intention: No Insight: Poor Judgment: Impulsive MDM Medical Decision Making Medical Record Reviewed: Yes Assessment/Plan Patient is a 31-year-old male known to [facility] and to this provider, history of substance abuse including reported use of Isabel with multiple visits to the ED, who presents under a Hung act initiated by law enforcement officers. The patient reported to police that he was going to her and harm someone if he did not get help. He did not say how he was going to harm someone and he did not specifically name anyone. He repeated to them that he will harm someone if they did not do anything to help him. Patient wants in [facility] became demanding and verbally abusive of staff as he felt that staff were not responding to his demands as quickly as he wanted them to. He did not present any psychosis, no ag, no objective clinical signs of a major mental illness. He does display significant antisocial traits and endeavors to obtain his needs by manipulating, threatening, and verbally abusing others.The Hung act will be listed as he is demanding to leave because he does not feel we are meeting his needs. He does not meet criteria under the Hung act. I strongly suspect that he contacted law enforcement in order to have them bring him to the hospital for secondary gains such as jail. Orders Orders Complete Blood Count With Diff (07/19/17 06:27) Comprehensive Metabolic Panel (07/19/17:) Thyroid Stimulating Hormone (07/19/17:27) Urinalysis - C+S If Indicated (07/19/17:27) Blood Glucose (07/19/17:27) Ecg Monitoring (07/19/17:27) Iv Access Insert/Monitor (07/19/17:27) Oximetry (07/19/17:27) Sodium Chloride 0.9% Flush (Ns Flush) (07/19/17 06:30) Drug Screen, Random Urine (07/19/17:27) Salicylates (Aspirin) (07/19/17 06:27) Iv Access Insert/Monitor (07/19/17 06:27) Ecg Monitoring (07/19/17 06:27) Sodium Chloride 0.9% Flush (Ns Flush) (07/19/17 06:30) Tylenol (Acetaminophen) (07/19/17 06:20) Alcohol (Ethanol) (07/19/17 06:20) Psych Screen (07/19/17 07:15) Results Vital Signs Date Time Temp Pulse Resp B/P (MAP) Pulse Ox O2 Delivery O2 Flow Rate FiO2 07/19/17 08:29 74 16 131/85 (100) 99 07/19/17 06:04 97.8 79 20 133/83 (100) 100 Laboratory Tests Test 07/19/17 06:20 White Blood Count 6.2 Red Blood Count 4.68 Hemoglobin 12.8 Hematocrit 38.5 Mean Corpuscular Volume 82.3 Mean Corpuscular Hemoglobin 27.3 Mean Corpuscular Hemoglobin Concent 33.2 Red Cell Distribution Width 15.0 Platelet Count 242 Mean Platelet Volume 8.2 Neutrophils (%) (Auto) 46.1 Lymphocytes (%) (Auto) 39.3 Monocytes (%) (Auto) 9.6 Eosinophils (%) (Auto) 4.5 Basophils (%) (Auto) 0.5 Neutrophils # (Auto) 2.8 Lymphocytes # (Auto) 2.4 Monocytes # (Auto) 0.6 Eosinophils # (Auto) 0.3 Basophils # (Auto) 0.0 CBC Comment DIFF FINAL Differential Comment Blood Urea Nitrogen 12 Creatinine 1.13 Random Glucose 102 Total Protein 7.3 Albumin 3.7 Calcium Level 8.4 Alkaline Phosphatase 104 Aspartate Amino Transf (AST/SGOT) 29 Alanine Aminotransferase (ALT/SGPT) 31 Total Bilirubin 0.3 Sodium Level 142 Potassium Level 3.8 Chloride Level 109 Carbon Dioxide Level 26.6 Anion Gap 6 Estimat Glomerular Filtration Rate 93 Thyroid Stimulating Hormone 3rd Gen 0.703 Salicylates Level 2.5 Acetaminophen Level LESS THAN 2.0 Ethyl Alcohol Level LESS THAN 3 Diagnosis Primary Impression: Malingering Psychiatrically Cleared: Yes Med/ Other Pt Specific Info: No Meds Exist/No RX given Disposition: 01 DISCHARGE HOME Condition: Stable Taylor Conner Jul 19, 2017 10:51
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
== END 2017-07-19 13:29 | disposition home or self-care (01) ==
LOC: NEPC 05:54 → NEPJ 13:29
DX: Z76.5 Malingerer [conscious simulation] (principal); R35.0 Frequency of micturition; I10 Essential (primary) hypertension; Z72.0 Tobacco use; Z86.59 Personal history of other mental and behavioral disorders; Z86.79 Personal history of other diseases of the circulatory system; Z87.19 Personal history of other diseases of the digestive system; Z87.39 Personal history of other diseases of the musculoskeletal system and connective tissue
CPT/HCPCS: 80053; 80307; 84443; 85025; 99283

== ENCOUNTER 2017-08-10 07:50 | Emergency (ER) | payer SELFPAY ==
[~2017-08-10] VITALS: Ht 188 cm; Wt 87.0 kg
[2017-08-10 07:54] VITALS: BP 153/89; PULSE 63; RESP 14; TEMP 97.5; O2SAT 98
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
[2017-08-10] MEDS ORDERED: SULFAMETHOXAZOLE-TRIMETHOPRIM DS 800-160 MG TAB PO ONE (08:30)
[2017-08-10 08:39] LABS: AUTOMATED NEUTROPHIL # 1.6 TH/MM3 (1.8-7.7); BASOPHIL % 0.4 % (0.0-2.0); EOSINOPHIL # 0.2 TH/MM3 (0-0.4); EOSINOPHIL % 4.6 % (0.0-4.0); HEMATOCRIT 42.2 % (39.0-51.0); HEMO FLAGS DIFF FINAL; LYMPH % 44.9 % (9.0-44.0); LYMPHOCYTE # 2.1 TH/MM3 (1.0-4.8); MEAN CORPUSCULAR HGB CONC 32.9 % (32.0-36.0); MONO % 16.1 % (0.0-8.0); PLATELET COUNT 240 TH/MM3 (150-450); RED BLOOD COUNT 5.14 MIL/MM3 (4.50-5.90); RED CELL DISTRIBUTION WIDTH 14.8 % (11.6-17.2); WHITE BLOOD COUNT 4.6 TH/MM3 (4.0-11.0)
[2017-08-10 08:58] LABS: ANION GAP 5 MEQ/L (5-15); BICARBONATE 26.3 MEQ/L (21.0-32.0); BLOOD UREA NITROGEN 10 MG/DL (7-18); CHLORIDE 110 MEQ/L (98-107); GLOMERULAR FILTRATION RATE 90 ML/MIN (>89); POTASSIUM 4.3 MEQ/L (3.5-5.1); SODIUM (NA) 141 MEQ/L (136-145)
[2017-08-10 09:13] LABS: ALCOHOL LESS THAN 3 MG/DL (0-5)
[2017-08-10] MEDS ORDERED: BACT800T5 PO (09:51)
[2017-08-10 10:30] VITALS: BP 150/95; PULSE 80; RESP 20; TEMP 97.3; O2SAT 100
[2017-08-10 14:35] VITALS: BP 134/70; PULSE 77; RESP 18
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
== END 2017-08-10 20:15 ==
LOC: NEPE 07:50 → NEPJ 20:15
DX: F19.94 Other psychoactive substance use, unspecified with psychoactive substance-induced mood disorder (principal); F20.9 Schizophrenia, unspecified; F90.9 Attention-deficit hyperactivity disorder, unspecified type; F41.9 Anxiety disorder, unspecified; I10 Essential (primary) hypertension
CPT/HCPCS: 80048; 80307; 85025; 99285

== ENCOUNTER 2017-08-14 01:34 | Emergency (ER) | payer SELFPAY ==
[~2017-08-14] VITALS: Ht 188 cm; Wt 90.0 kg
[2017-08-14 01:36] VITALS: BP 129/77; PULSE 92; RESP 16; TEMP 97.6; O2SAT 99
--- NOTE | 2017-08-14 02:00 | PD ---
HPI Chief Complaint: Psychiatric Symptoms Time Seen by Provider: 01:57 Travel History International Travel<30 days: No Contact w/Intl Traveler<30days: No Traveled to known affect area: No History of Present Illness HPI 32-year-old male with reported history of schizophrenia presents for evaluation of auditory hallucinations. Symptoms been ongoing for several years. He reports that the voices tell him to do evil things. He reports that he was discharged today from [facility]. He is prescribed Zyprexa however he does not take it because it causes abdominal pain. He denies any drug or alcohol use. He denies any medical complaints at this time. PFSH Past Medical History ADHD: Yes Anxiety: Yes Depression: Yes Cancer: No Cardiovascular Problems: Yes (high bp - Per records.) Diminished Hearing: No Endocrine: No Gastrointestinal Disorders: Yes (STOMACH ULCERS) Genitourinary: No Hypertension: Yes (no per patient at this time 07/19/17) Immune Disorder: No Implanted Vascular Access Dvce: No Musculoskeletal: Yes (Costochondritis) Neurologic: No Psychiatric: No Respiratory: No Immunizations Current: Yes Past Surgical History Abdominal Surgery: Yes (HERNIA REPAIR - INGUINAL LEFT @ age 15 - Per records.) Cholecystectomy: Yes Other Surgery: Yes (nasal polyps) Social History Alcohol Use: No Tobacco Use: Yes (1 CIG DAILY) Substance Use: Yes Allergies-Medications (Allergen,Severity, Reaction): Coded Allergies: No Known Allergies (Verified Adverse Reaction, Unknown, 08/14/17) Per pt. Reported Meds & Prescriptions Reported Meds & Active Scripts Active No Active Prescriptions or Reported Medications Review of Systems Except as stated in HPI: all other systems reviewed are Neg Physical Exam Narrative GENERAL: Well-nourished male in no acute distress SKIN: Warm and dry. HEAD: Atraumatic. Normocephalic. EYES: Pupils equal and round. No scleral icterus. No injection or drainage. ENT: No nasal bleeding or discharge. Mucous membranes pink and moist. NECK: Trachea midline. No JVD. CARDIOVASCULAR: Regular rate and rhythm. No murmur appreciated. RESPIRATORY: No accessory muscle use. Clear to auscultation. Breath sounds equal bilaterally. GASTROINTESTINAL: Abdomen soft, non-tender, nondistended. Hepatic and splenic margins not palpable. MUSCULOSKELETAL: No obvious deformities. No clubbing. No cyanosis. No edema. NEUROLOGICAL: Awake and alert. No obvious cranial nerve deficits. Motor grossly within normal limits. Normal speech. PSYCHIATRIC: Insight and judgment limited. Data Data Last Documented VS Vital Signs Date Time Temp Pulse Resp B/P (MAP) Pulse Ox O2 Delivery O2 Flow Rate FiO2 08/14/17 01:36 97.6 92 16 129/77 (94) 99 Room Air Orders Orders Psych Screen (08/14/17 01:57) Drug Screen, Random Urine (08/14/17 01:57) MDM Medical Decision Making Medical Screen Exam Complete: Yes Emergency Medical Condition: Yes Medical Record Reviewed: Yes Differential Diagnosis Schizophrenia, schizoaffective disorder, malingering, medication noncompliance, substance induced mood disorder Narrative Course 32-year-old male presents voluntarily report for evaluation of auditory hallucinations. Mental health screening discussed with the patient. Psychiatric screen ordered. I have reviewed his lab work from 4 days ago. He is medically cleared for psychiatric disposition. Diagnosis Primary Impression: Auditory hallucinations Scripts No Active Prescriptions or Reported Meds Livan Borja Aug 14, 2017 02:00
[2017-08-14 08:00] VITALS: BP 132/75; PULSE 77; RESP 16; O2SAT 100
== END 2017-08-14 10:15 | disposition left against medical advice (07) ==
LOC: NEPD 01:34
DX: F20.9 Schizophrenia, unspecified (principal); F17.210 Nicotine dependence, cigarettes, uncomplicated
CPT/HCPCS: 80307; 99283

== ENCOUNTER 2017-08-14 16:02 | Emergency (ER) | payer OTHER ==
[~2017-08-14] VITALS: Ht 190.5 cm; Wt 90.0 kg
--- NOTE | 2017-08-14 16:59 | PD ---
HPI Chief Complaint: Psychiatric Symptoms Time Seen by Provider: 16:58 Travel History International Travel<30 days: No Contact w/Intl Traveler<30days: No Traveled to known affect area: No History of Present Illness HPI 32-year-old male presents to emergency department again after leaving AMA this afternoon. Patient apparently return to the emergency department requesting evaluation by a psychiatrist. Patient denies any fever or chills. PFSH Past Medical History ADHD: Yes Anxiety: Yes Depression: Yes Cancer: No Cardiovascular Problems: Yes (high bp - Per records.) Diminished Hearing: No Endocrine: No Gastrointestinal Disorders: Yes (STOMACH ULCERS) Genitourinary: No Hypertension: Yes (no per patient at this time 07/19/17) Immune Disorder: No Implanted Vascular Access Dvce: No Musculoskeletal: Yes (Costochondritis) Neurologic: No Psychiatric: No Respiratory: No Immunizations Current: Yes Past Surgical History Abdominal Surgery: Yes (HERNIA REPAIR - INGUINAL LEFT @ age 15 - Per records.) Cholecystectomy: Yes Other Surgery: Yes (nasal polyps) Social History Alcohol Use: No Tobacco Use: Yes (1 CIG DAILY) Substance Use: Yes Allergies-Medications (Allergen,Severity, Reaction): Coded Allergies: No Known Allergies (Verified Adverse Reaction, Unknown, 08/14/17) Per pt. Reported Meds & Prescriptions Reported Meds & Active Scripts Active Active Prescriptions or Reported Medications Unobtainable Review of Systems Except as stated in HPI: all other systems reviewed are Neg Physical Exam Narrative GENERAL: Well-nourished, well-developed patient. SKIN: Focused skin assessment warm/dry. HEAD: Normocephalic. EYES: No scleral icterus. No injection or drainage. NECK: Supple, trachea midline. No JVD or lymphadenopathy. CARDIOVASCULAR: Regular rate and rhythm without murmurs, gallops, or rubs. RESPIRATORY: Breath sounds equal bilaterally. No accessory muscle use. GASTROINTESTINAL: Abdomen soft, non-tender, nondistended. MUSCULOSKELETAL: No cyanosis, or edema. BACK: Nontender without obvious deformity. No CVA tenderness. Data Data Orders MDM Medical Decision Making Medical Screen Exam Complete: Yes Emergency Medical Condition: Yes Differential Diagnosis Psychosis, delirium, schizophrenia, depression, substance abuse Narrative Course 32-year-old male presents to emergency department again after leaving AMA this afternoon. Patient apparently return to the emergency department requesting evaluation by a psychiatrist. Patient denies any medical complaints and would like to be evaluated by psychiatrist today. Vital signs stable Physical exam unremarkable I discussed this case with the psych staff and they were able to obtain placement at [facility]. Patient will be medically cleared based off of previous labs and no changes in medical history to go directly to [facility]. Diagnosis Primary Impression: Schizophrenia Qualified Codes: F20.9 - Schizophrenia, unspecified Scripts Unable to Obtain Active Prescriptions or Reported Meds Condition: Stable Greta Salazar Aug 14, 2017 16:59
== END 2017-08-14 17:08 ==
LOC: NEDAMB 16:02 → NEPJ 17:08
DX: F20.9 Schizophrenia, unspecified (principal); F17.210 Nicotine dependence, cigarettes, uncomplicated
CPT/HCPCS: 99285

== ENCOUNTER 2017-08-25 19:07 | Emergency (ER) | payer SELFPAY ==
[~2017-08-25] VITALS: Ht 188 cm; Wt 87.0 kg
[2017-08-25 19:10] VITALS: BP 131/85; PULSE 81; RESP 16; TEMP 98.1; O2SAT 99
--- NOTE | 2017-08-25 20:00 | PD ---
HPI Chief Complaint: Psychiatric Symptoms Time Seen by Provider: 19:50 Travel History International Travel<30 days: No Contact w/Intl Traveler<30days: No Traveled to known affect area: No History of Present Illness HPI 32-year-old male presents with 2 complaints. He reports homicidal ideation and auditory hallucinations. He reports that he wants to kill multiple people in this institution for "f up my mind." The patient became increasingly agitated and verbally abusive during my attempt at obtaining a history of present illness. He was also complaining of some right third finger pain. He reports that 3 weeks ago he slapped a cactus with his hand and he has had pain in his right third finger since then. He is concerned that there are thorns embedded in his right third finger. History is limited by agitation. Additional history was obtained by chart review. He was seen here recently for evaluation of schizophrenia. He was seen here in August 10 complaining of right third finger pain after hitting a cactus. At that time there was no evidence of any puncture wounds but he only allowed a cursory examination and he was prescribed Bactrim. PFSH Past Medical History ADHD: Yes Anxiety: Yes Depression: Yes Cancer: No Cardiovascular Problems: Yes (high bp - Per records.) Diminished Hearing: No Endocrine: No Gastrointestinal Disorders: Yes (STOMACH ULCERS) Genitourinary: No Hypertension: Yes (no per patient at this time 07/19/17) Immune Disorder: No Implanted Vascular Access Dvce: No Musculoskeletal: Yes (Costochondritis) Neurologic: No Psychiatric: No Respiratory: No Immunizations Current: Yes Past Surgical History Abdominal Surgery: Yes (HERNIA REPAIR - INGUINAL LEFT @ age 15 - Per records.) Cholecystectomy: Yes Other Surgery: Yes (nasal polyps) Social History Alcohol Use: No Tobacco Use: Yes (1 CIG DAILY) Substance Use: Yes Allergies-Medications (Allergen,Severity, Reaction): Coded Allergies: No Known Allergies (Verified Adverse Reaction, Unknown, 08/25/17) Per pt. Reported Meds & Prescriptions Reported Meds & Active Scripts Active No Active Prescriptions or Reported Medications Review of Systems Except as stated in HPI: all other systems reviewed are Neg Physical Exam Narrative GENERAL: Well-developed well-nourished male who is agitated, anxiously pacing the room, responding to internal stimuli SKIN: Warm and dry. HEAD: Atraumatic. Normocephalic. EYES: Pupils equal and round. No scleral icterus. No injection or drainage. ENT: No nasal bleeding or discharge. Mucous membranes pink and moist. NECK: Trachea midline. No JVD. CARDIOVASCULAR: Regular rate and rhythm. No murmur appreciated. RESPIRATORY: No accessory muscle use. Clear to auscultation. Breath sounds equal bilaterally. GASTROINTESTINAL: Abdomen soft, non-tender, nondistended. Hepatic and splenic margins not palpable. MUSCULOSKELETAL: No obvious deformities. The patient refuses to allow me to palpate his right third finger however he appears to have normal range of motion of the right third finger and there are no puncture wounds and there is no obvious erythema or other cutaneous abnormality. NEUROLOGICAL: Awake and alert. No obvious cranial nerve deficits. Motor grossly within normal limits. Normal speech. PSYCHIATRIC: Insight and judgment appear limited. Data Data Last Documented VS Vital Signs Date Time Temp Pulse Resp B/P (MAP) Pulse Ox O2 Delivery O2 Flow Rate FiO2 08/25/17 19:59 14 08/25/17 19:10 98.1 81 131/85 (100) 99 Room Air Orders Orders Complete Blood Count With Diff (08/25/17 19:53) Comprehensive Metabolic Panel (08/25/17 19:53) Psych Screen (08/25/17 19:53) Drug Screen, Random Urine (08/25/17 19:53) Alcohol (Ethanol) (08/25/17 19:53) Finger ([id number]) (08/25/17 ) Olanzapine Inj (Zyprexa Inj) (08/25/17 20:15) Lorazepam Inj (Ativan Inj) (08/25/17 20:15) Lorazepam (Ativan) (08/25/17 20:30) Labs Laboratory Tests Test 08/25/17 20:05 White Blood Count 6.5 TH/MM3 Red Blood Count 4.71 MIL/MM3 Hemoglobin 13.0 GM/DL Hematocrit 38.5 % Mean Corpuscular Volume 81.8 FL Mean Corpuscular Hemoglobin 27.5 PG Mean Corpuscular Hemoglobin Concent 33.7 % Red Cell Distribution Width 14.3 % Platelet Count 248 TH/MM3 Mean Platelet Volume 8.3 FL Neutrophils (%) (Auto) 28.6 % Lymphocytes (%) (Auto) 54.8 % Monocytes (%) (Auto) 9.5 % Eosinophils (%) (Auto) 6.5 % Basophils (%) (Auto) 0.6 % Neutrophils # (Auto) 1.9 TH/MM3 Lymphocytes # (Auto) 3.6 TH/MM3 Monocytes # (Auto) 0.6 TH/MM3 Eosinophils # (Auto) 0.4 TH/MM3 Basophils # (Auto) 0.0 TH/MM3 CBC Comment DIFF FINAL Differential Comment Blood Urea Nitrogen 12 MG/DL Creatinine 1.14 MG/DL Random Glucose 82 MG/DL Total Protein 7.0 GM/DL Albumin 3.5 GM/DL Calcium Level 8.4 MG/DL Alkaline Phosphatase 113 U/L Aspartate Amino Transf (AST/SGOT) 31 U/L Alanine Aminotransferase (ALT/SGPT) 31 U/L Total Bilirubin 0.2 MG/DL Sodium Level 140 MEQ/L Potassium Level 4.0 MEQ/L Chloride Level 108 MEQ/L Carbon Dioxide Level 27.6 MEQ/L Anion Gap 4 MEQ/L Estimat Glomerular Filtration Rate 91 ML/MIN Ethyl Alcohol Level LESS THAN 3 MG/DL MDM Medical Decision Making Medical Screen Exam Complete: Yes Emergency Medical Condition: Yes Medical Record Reviewed: Yes Interpretation(s) CBC reveals lymphocyte percentage 54.8, otherwise unremarkable. CMP unremarkable. Alcohol level within normal limits. Differential Diagnosis Schizophrenia, acute psychosis, substance induced mood disorder Narrative Course 32-year-old male presents complaining of auditory hallucinations, homicidal ideations. The patient clearly does not have the capacity to make rational decisions at this time and he is being placed under a Hung act. In regards to his right third finger pain from hitting a cactus 3 weeks ago, although he will not let me palpate his right third finger he has no apparent deformity, no puncture wounds and there do not appear to be any puncture wounds when he was examined here on August 20. It certainly would not be reasonable to incise his skin and into located and he alleged foreign bodies and I offered to refer the patient to a hand surgeon which angered the patient even further. An x-ray was obtained. X-ray imaging reveals: FINDINGS: 3 views of the right hand. Bone alignment within normal limits. No evidence of fracture. No evidence of joint narrowing. No focal bone erosion. Small linear density identified on the oblique view in the soft tissues of the long finger not seen on the other views, likely representing artifact. Soft tissue swelling of the long finger noted. Radiologist feels that it is likely artifact only seen on one view however clinically this is the area where the patient alleges that he had cactus needle embedded in his skin. Therefore discussed the results of the x-ray with him and once again encouraged to follow-up with a hand surgeon to discuss the pros and cons of attempted foreign body removal. Diagnosis Primary Impression: Homicidal ideations Additional Impression: Foreign body of right hand Referrals: Ori Wynne MD Additional Instructions: Follow-up with a hand specialist such as Dr. Wynne. Scripts No Active Prescriptions or Reported Meds Livan Borja Aug 25, 2017 20:00
[2017-08-25] MEDS ORDERED: OLANZapine IM 10 MG VIAL IM ONE (20:15)
[2017-08-25] MEDS ORDERED: LORazepam 2 MG/ML VIAL IM ONE (20:15)
[2017-08-25 20:29] LABS: AUTOMATED NEUTROPHIL # 1.9 TH/MM3 (1.8-7.7); BASOPHIL % 0.6 % (0.0-2.0); EOSINOPHIL # 0.4 TH/MM3 (0-0.4); EOSINOPHIL % 6.5 % (0.0-4.0); HEMATOCRIT 38.5 % (39.0-51.0); LYMPH % 54.8 % (9.0-44.0); LYMPHOCYTE # 3.6 TH/MM3 (1.0-4.8); MEAN CELL VOLUME 81.8 FL (80.0-100.0); MEAN CORPUSCULAR HEMOGLOBIN 27.5 PG (27.0-34.0); MEAN CORPUSCULAR HGB CONC 33.7 % (32.0-36.0); MEAN PLATELET VOLUME 8.3 FL (7.0-11.0); MONO % 9.5 % (0.0-8.0); MONOCYTE # 0.6 TH/MM3 (0-0.9); NEUT % 28.6 % (16.0-70.0); PLATELET COUNT 248 TH/MM3 (150-450); RED BLOOD COUNT 4.71 MIL/MM3 (4.50-5.90); RED CELL DISTRIBUTION WIDTH 14.3 % (11.6-17.2); WHITE BLOOD COUNT 6.5 TH/MM3 (4.0-11.0)
[2017-08-25] MEDS ORDERED: LORazepam 2 MG TAB PO ONE (20:30)
[2017-08-25 20:49] LABS: ALBUMIN 3.5 GM/DL (3.4-5.0); BICARBONATE 27.6 MEQ/L (21.0-32.0); BLOOD UREA NITROGEN 12 MG/DL (7-18); CALCIUM 8.4 MG/DL (8.5-10.1); CHLORIDE 108 MEQ/L (98-107); CREATININE 1.14 MG/DL (0.60-1.30); GLOMERULAR FILTRATION RATE 91 ML/MIN (>89); GLUCOSE,RANDOM 82 MG/DL (74-106); SODIUM (NA) 140 MEQ/L (136-145)
[2017-08-25 20:50] LABS: ALT (GPT) 31 U/L (12-78); AST (GOT) 31 U/L (15-37)
[2017-08-25 20:53] LABS: ALKALINE PHOSPHATASE 113 U/L (45-117); TOTAL BILIRUBIN ADULT 0.2 MG/DL (0.2-1.0)
--- NOTE | 2017-08-25 20:59 | RADRPT ---
EXAM DATE/TIME: 08/25/2017 19:57 [facility] COMPARISON: No previous studies available for comparison. INDICATIONS : Right hand, third digit pain and swelling near PIP joint. MEDICAL HISTORY : None. SURGICAL HISTORY : None. ENCOUNTER: Initial ACUITY: 4 - 6 days PAIN SCORE: 10/10 LOCATION: Right hand, third digit FINDINGS: 3 views of the right hand. Bone alignment within normal limits. No evidence of fracture. No evidence of joint narrowing. No focal bone erosion. Small linear density identified on the oblique view in th e soft tissues of the long finger not seen on the other views, likely representing artifact. Soft tis jv swelling of the long finger noted. CONCLUSION: Soft tissue swelling. No acute bony abnormality identified. Luis Enrique Hu MD on August 25, 2017 at 20:56 Board Certified Radiologist. This report was verified electronically.
[2017-08-25 22:39] VITALS: BP 126/77
== END 2017-08-26 00:11 ==
LOC: NEPD 19:07 → NEPJ 08-26 00:11
DX: R45.850 Homicidal ideations (principal); M79.5 Residual foreign body in soft tissue; F20.9 Schizophrenia, unspecified; F90.9 Attention-deficit hyperactivity disorder, unspecified type; F41.9 Anxiety disorder, unspecified; F32.9 Major depressive disorder, single episode, unspecified; I10 Essential (primary) hypertension; F17.210 Nicotine dependence, cigarettes, uncomplicated
CPT/HCPCS: 73140; 80053; 80307; 85025; 99285

== ENCOUNTER 2017-08-26 21:56 | Emergency (ER) | payer SELFPAY ==
[2017-08-26 21:58] VITALS: BP 155/93; PULSE 88; RESP 18; TEMP 99; O2SAT 98
--- NOTE | 2017-08-26 23:03 | PD ---
HPI Chief Complaint: Psychiatric Symptoms Time Seen by Provider: 22:59 Travel History International Travel<30 days: No Contact w/Intl Traveler<30days: No Traveled to known affect area: No History of Present Illness HPI This is a 32-year-old male who has been seen here frequently in the past for psychiatric evaluation. He presents complaining of auditory hallucinations. He reports that he has been hearing voices that are telling him to hurt people. he feels like he has been mistreated by numerous people. He is also complaining of right third finger pain. He reports that 3 weeks ago he hit a cactus and he has been having right third finger pain since then. He was seen 2 days ago in an x-ray revealed likely foreign body in the right third finger. It was recommended that he follow up with a hand specialist for discussion in regards to foreign body removal. At that time he was being seen for psychiatric evaluation as well and he was transferred to [facility] yesterday and he was released from there today. PFSH Past Medical History ADHD: Yes Anxiety: Yes Depression: Yes Cancer: No Cardiovascular Problems: Yes (high bp - Per records.) Diminished Hearing: No Endocrine: No Gastrointestinal Disorders: Yes (STOMACH ULCERS) Genitourinary: No Hypertension: Yes (no per patient at this time 07/19/17) Immune Disorder: No Implanted Vascular Access Dvce: No Musculoskeletal: Yes (Costochondritis) Neurologic: No Psychiatric: No Respiratory: No Immunizations Current: Yes Past Surgical History Abdominal Surgery: Yes (HERNIA REPAIR - INGUINAL LEFT @ age 15 - Per records.) Cholecystectomy: Yes Other Surgery: Yes (nasal polyps) Social History Alcohol Use: No Tobacco Use: Yes (1 CIG DAILY) Substance Use: Yes (HX OF FLAKKA) Allergies-Medications (Allergen,Severity, Reaction): Coded Allergies: No Known Allergies (Verified Adverse Reaction, Unknown, 08/26/17) Per pt. Reported Meds & Prescriptions Reported Meds & Active Scripts Active No Active Prescriptions or Reported Medications Review of Systems Except as stated in HPI: all other systems reviewed are Neg Physical Exam Exam Limitations: Refused Narrative GENERAL: Well-developed well-nourished male in no acute distress The patient refuses the remaining aspects of physical examination NEUROLOGICAL: Awake and alert. No obvious cranial nerve deficits. Motor grossly within normal limits. Normal speech. PSYCHIATRIC: Agitated. Data Data Last Documented VS Vital Signs Date Time Temp Pulse Resp B/P (MAP) Pulse Ox O2 Delivery O2 Flow Rate FiO2 08/26/17 21:58 99.0 88 18 155/93 (113) 98 Orders Orders Psych Screen (08/26/17 22:02) MDM Medical Decision Making Medical Screen Exam Complete: Yes Emergency Medical Condition: Yes Medical Record Reviewed: Yes Differential Diagnosis Schizoaffective disorder, schizophrenia, malingering, adjustment reaction, acute psychosis Narrative Course 32-year-old male presents requesting psychiatric evaluation of auditory hallucinations. Mental health screening discussed with the patient. Psychiatric screen ordered. He is medically cleared. Diagnosis Primary Impression: Homicidal ideations Referrals: Ori Wynne MD Additional Instructions: Follow-up with a hand specialist such as Dr. Wynne in regards to your right third finger pain. Scripts No Active Prescriptions or Reported Meds Livan Borja Aug 26, 2017 23:03
[2017-08-27 06:11] VITALS: BP 133/88; PULSE 74; RESP 17; O2SAT 98
[2017-08-27 09:28] VITALS: BP 141/68; PULSE 81; RESP 18; O2SAT 100
--- NOTE | 2017-08-27 09:47 | PD ---
Physical Exam Time Seen by Provider: 09:[address] Forrester has evaluated the patient and cleared the patient for discharge. Data Data Last Documented VS Vital Signs Date Time Temp Pulse Resp B/P (MAP) Pulse Ox O2 Delivery O2 Flow Rate FiO2 08/27/17 09:28 81 18 141/68 (92) 100 Room Air 08/26/17 21:58 99.0 Orders Orders Psych Screen (08/26/17 22:02) Diet Regular Basic (08/27/17 Breakfast) MDM Supervised Visit with MACKENZIE: No Narrative Course Dr. Forrester has evaluated the patien and cleared the patient for discharge. Patient contracts safety. Denies suicidal or homicidal ideations. Patient will be provided community resource packet to /ESTEFANI for follow-up. Has friends and family for support. Patient was medically cleared by alternate provider prior to psych screening. Patient has been evaluated by psychiatry and and is now cleared for discharge. Diagnosis Primary Impression: Homicidal ideations Referrals: Ori Wynne MD (Out patient) [facility] Primary Care Physician Psychiatrist [facility] Patient Instructions: General Instructions Additional Instruction: Follow-up with a hand specialist such as Dr. Wynne in regards to your right third finger pain. Contract safety to your self and others Follow-up with psychiatry Follow-up with primary care provider Follow-up with Miguelito Camejo Return to the emergency department immediately with worsening of symptoms Med/Other Pt SpecificInfo: No Change to Meds, No Meds Exist/No RX given Scripts No Active Prescriptions or Reported Meds Disposition: 01 DISCHARGE HOME Condition: Stable Alicia Pickard Aug 27, 2017 09:47
--- NOTE | 2017-08-27 09:50 | PD ---
History of Present Illness Chief Complaint: Psychiatric Symptoms Time Seen by Provider: 09:30 Travel History International Travel<30 Days: No Contact w/Intl Traveler<30days: No Known affected area: No Legal Status Legal Status: Voluntary History of Present Illness: 32-year-old male, well known to this physician, presenting voluntarily this time with complaints to the ED physician that he has auditory hallucinations and suicidal ideation. At the time of this evaluation he reports no auditory hallucinations or suicidal ideation. The patient is very well known to this physician from his numerous ED visits. He is highly manipulative. He presents with no suicidal or homicidal ideation, plan or intent at this time. He presents with no psychotic symptoms or cognitive impairments at this time. He is wanting to leave and he is considered competent to make this decision. PFSH Past Medical History ADHD: Yes Anxiety: Yes Depression: Yes Cancer: No Cardiovascular Problems: Yes (high bp - Per records.) Diminished Hearing: No Endocrine: No Gastrointestinal Disorders: Yes (STOMACH ULCERS) Genitourinary: No Hypertension: Yes (no per patient at this time 07/19/17) Immune Disorder: No Implanted Vascular Access Dvce: No Musculoskeletal: Yes (Costochondritis) Neurologic: No Psychiatric: No Respiratory: No Immunizations Current: Yes Past Surgical History Abdominal Surgery: Yes (HERNIA REPAIR - INGUINAL LEFT @ age 15 - Per records.) Cholecystectomy: Yes Other Surgery: Yes (nasal polyps) Psychiatric History Psychiatric History Hx Psychiatric Treatment: PT STATES HE HAS BEEN TO [facility] MULTIPLE TIMES. This physician does not see any current significant clinically objective evidence of a major mental disorder at this time. History of Inpatient Treatment: Yes Guns or firearms in home: No Social History Hx Alcohol Use: No Hx Tobacco Use: Yes (1 CIG DAILY) Hx Substance Use: Yes (HX OF FLAKKA) Substance Use Type: Marijuana, Nicotine/Cigarettes, Other Other Substances Used: PT STATES HE SMOKES FLAKKA 1 X PER WEEK Hx of Substance Use Treatment: Yes Allergies-Medications (Allergen,Severity, Reaction): Coded Allergies: No Known Allergies (Verified Adverse Reaction, Unknown, 08/26/17) Per pt. Reported Meds & Prescriptions Reported Meds & Active Scripts Active No Active Prescriptions or Reported Medications Review of Systems Psychiatric: COMPLAINS OF: Anxiety Except as stated in HPI: all other systems reviewed are Neg Mental Status Examination Appearance: Appropriate Consciousness: Alert Orientation: x4 Motor Activity: Normal gait Speech: Unremarkable Language: Adequate Fund of Knowledge: Adequate Attention and Concentration: Adequate Memory: Unremarkable Mood: Appropriate Affect: Appropriate Thought Process & Associations: Intact Thought Content: Appropriate Hallucination Type: None Delusion Type: None Suicidal Ideation: No Suicidal Plan: No Suicidal Intention: No Homicidal Ideation: No Homicidal Plan: No Homicidal Intention: No Insight: Adequate Judgment: Adequate MDM Medical Decision Making Medical Record Reviewed: Yes Assessment/Plan Patient interviewed at bedside with nurse Wheeler. Electronic medical record reviewed. Case discussed with nurse Wheeler. Patient is felt to be malingering. He was here recently, seen by Dr. Castellanos and his Hung act lifted premises August 22, 2017). He continues to stay in this area and travel between [place] and [facility]. He does not meet Hung act criteria or criteria for psychiatric hospitalization at this time. The patient may act out in a way that is harmful to himself as a form of manipulation. However, this is both unpredictable and unavoidable. It remains counter therapeutic to admit the patient as a result of his manipulations. Orders Orders Psych Screen (08/26/17 22:02) Diet Regular Basic (08/27/17 Breakfast) Results Vital Signs Date Time Temp Pulse Resp B/P (MAP) Pulse Ox O2 Delivery O2 Flow Rate FiO2 08/27/17 09:28 81 18 141/68 (92) 100 Room Air 08/27/17 06:11 74 17 133/88 (103) 98 Room Air 08/26/17 21:58 99.0 88 18 155/93 (113) 98 Diagnosis Primary Impression: Malingering Referrals: Ori Wynne MD Additional Instructions: Follow-up with a hand specialist such as Dr. Wynne in regards to your right third finger pain. Prescriptions No Active Prescriptions or Reported Meds Audie Forrester MD Aug 27, 2017 09:50
== END 2017-08-27 09:59 | disposition home or self-care (01) ==
LOC: NEPJ 21:56
DX: R44.0 Auditory hallucinations (principal); R45.850 Homicidal ideations; M79.644 Pain in right finger(s); F17.210 Nicotine dependence, cigarettes, uncomplicated; Z76.5 Malingerer [conscious simulation]
CPT/HCPCS: 99284

== ENCOUNTER 2017-08-30 23:29 | Emergency (ER) | payer OTHER ==
[~2017-08-30] VITALS: Ht 182.9 cm; Wt 100.0 kg
[2017-08-30 23:53] VITALS: BP 145/73; PULSE 78; RESP 20; TEMP 98.8; O2SAT 98
--- NOTE | 2017-08-31 00:28 | PD ---
HPI Chief Complaint: Psychiatric Symptoms Time Seen by Provider: 23:55 Travel History International Travel<30 days: No Contact w/Intl Traveler<30days: No Traveled to known affect area: No History of Present Illness HPI 32-year-old black male presents to emergency department under Hung act for psychological evaluation. This is a patient well-known to the medical staff and myself multiple ER visits. He presents again today with complaints of auditory hallucinations. According to the Hung act patient has stated that he has had thoughts of hurting others. This is a typical mantra for this patient. The patient here does not want to speak with this examiner. He states that he wants to sleep and get something to eat. He states that he was probably something to eat. Patient states that he is "I'm straight". The patient denies any plan on self-harm. No plan on homicidal. Patient is followed by Miguelito Stapleton. Some question of compliance. PFSH Past Medical History ADHD: Yes Anxiety: Yes Depression: Yes Cancer: No Cardiovascular Problems: Yes (high bp - Per records.) Diminished Hearing: No Endocrine: No Gastrointestinal Disorders: Yes (STOMACH ULCERS) Genitourinary: No Hypertension: Yes (no per patient at this time 07/19/17) Immune Disorder: No Implanted Vascular Access Dvce: No Musculoskeletal: Yes (Costochondritis) Neurologic: No Psychiatric: No Respiratory: No Immunizations Current: Yes Influenza Vaccination: No Past Surgical History Surgical History: Unable to Obtain Abdominal Surgery: Yes (HERNIA REPAIR - INGUINAL LEFT @ age 15 - Per records.) Cholecystectomy: Yes Other Surgery: Yes (nasal polyps) Social History Alcohol Use: No Tobacco Use: Yes (1 CIG DAILY) Substance Use: Yes (HX OF [facility]) Allergies-Medications (Allergen,Severity, Reaction): Coded Allergies: No Known Allergies (Verified Adverse Reaction, Unknown, 08/30/17) Per pt. Reported Meds & Prescriptions Reported Meds & Active Scripts Active No Active Prescriptions or Reported Medications Review of Systems General / Constitutional: No: Fever Eyes: No: Visual changes HENT: No: Headaches Cardiovascular: No: Chest Pain or Discomfort Respiratory: No: Shortness of Breath Gastrointestinal: No: Abdominal Pain Genitourinary: No: Dysuria Musculoskeletal: No: Pain Skin: No Rash Neurologic: No: Weakness Psychiatric: Positive: Disorder of Thought, Mood Disorder, Substance Abuse, No : Anxiety, Depression, Suicidal Ideations, Homicidal Ideation Endocrine: No: Polydipsia Hematologic/Lymphatic: No: Easy Bruising Physical Exam Narrative GENERAL: Well-nourished, well-developed patient. Patient is resting comfortable in examination room. He is uncooperative. He is attempting to sleep. When he is aroused he states that he is hungry and wants the food that he's been promise. Does not want to cooperate with his evaluation today. SKIN: Warm and dry. HEAD: Normocephalic and atraumatic. EYES: No scleral icterus. No injection or drainage. ENT: No nasal drainage noted. Mucous membranes pink. Airway patent. NECK: Supple, trachea midline. Moves head freely without obvious discomfort. CARDIOVASCULAR: Regular rate and rhythm without murmurs, gallops, or rubs. RESPIRATORY: Breath sounds equal bilaterally. No accessory muscle use. GASTROINTESTINAL: Abdomen soft, non-tender, nondistended. EXTREMITIES: No cyanosis or edema. BACK: Nontender without obvious deformity. No CVA tenderness. NEURO: Patient is alert and oriented. no sensorimotor deficits. Nonfocal. Normal speech. PSYCH: Patient reports auditory hallucinations. No she'll hallucinations. Data Data Last Documented VS Vital Signs Date Time Temp Pulse Resp B/P (MAP) Pulse Ox O2 Delivery O2 Flow Rate FiO2 08/30/17 23:53 787 20 08/30/17 23:53 98.8 145/73 (97) 98 Orders Orders Psych Screen (08/31/17 00:24) Ed Discharge Order (08/31/17 01:14) [facility] Medical Decision Making Medical Screen Exam Complete: Yes Emergency Medical Condition: Yes Medical Record Reviewed: Yes Differential Diagnosis MDM: High Differential diagnoses: Schizophrenia, schizoaffective disorder, bipolar, anxiety, depression, adjustment reaction, mood disorder NOS, ODD, depressive disorder NOS, dementia, dementia with agitation, psychosis NOS, substance induced mood disorder, DMDD, Asperger syndrome, infection,electrolyte abnormality, malingering. Narrative Course Mental health screening discussed with the patient. Psychiatric screen ordered. The patient has been seen by the psych screener. She agrees that the patient is not acutely suicidal or homicidal. The patient has had multiple admissions for similar presentations has been treated and discharged. She does suffer from schizophrenia. The patient and the impression of the psych screener and myself to be lifted and can follow-up as an outpatient with Debi Stapleton tomorrow. The patient does not meet Hung act criteria at this time in his Hung act is lifted by Dr. Toussaint. Medical clearance for psychiatric admission Diagnosis Primary Impression: Medical clearance for psychiatric admission Referrals: [facility] (Out patient) 1 day Patient Instructions: General Instructions Additional Instructions: Rest. Follow-up with the recommendations of the psych screener. Return to the ER if symptoms worsen or problems develop. Med/Other Pt SpecificInfo: No Meds Exist/No RX given Scripts No Active Prescriptions or Reported Meds Disposition: 01 DISCHARGE HOME Condition: Stable Fabio Ruffin Aug 31, 2017 00:28
[2017-08-31 05:44] VITALS: BP 134/76
== END 2017-08-31 05:55 | disposition home or self-care (01) ==
LOC: NEPD 23:29
DX: R44.0 Auditory hallucinations (principal); F17.210 Nicotine dependence, cigarettes, uncomplicated
CPT/HCPCS: 99284

== ENCOUNTER 2017-09-14 09:44 | Emergency (ER) | payer SELFPAY ==
[~2017-09-14] VITALS: Ht 188 cm; Wt 88.5 kg
[2017-09-14 09:46] VITALS: BP 134/84; PULSE 83; RESP 18; TEMP 97.7; O2SAT 99
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
[2017-09-14 12:01] LABS: BASOPHIL % 0.6 % (0.0-2.0); EOSINOPHIL # 0.4 TH/MM3 (0-0.4); EOSINOPHIL % 4.7 % (0.0-4.0); HEMATOCRIT 42.1 % (39.0-51.0); HEMOGLOBIN 13.9 GM/DL (13.0-17.0); LYMPH % 31.8 % (9.0-44.0); LYMPHOCYTE # 2.4 TH/MM3 (1.0-4.8); MEAN CELL VOLUME 83.3 FL (80.0-100.0); MEAN CORPUSCULAR HEMOGLOBIN 27.5 PG (27.0-34.0); MEAN PLATELET VOLUME 8.3 FL (7.0-11.0); MONOCYTE # 0.8 TH/MM3 (0-0.9); NEUT % 52.9 % (16.0-70.0); PLATELET COUNT 220 TH/MM3 (150-450); RED BLOOD COUNT 5.06 MIL/MM3 (4.50-5.90); WHITE BLOOD COUNT 7.5 TH/MM3 (4.0-11.0)
[2017-09-14 12:31] LABS: ALBUMIN 3.7 GM/DL (3.4-5.0); ALT (GPT) 36 U/L (12-78); AST (GOT) 28 U/L (15-37); BICARBONATE 29.5 MEQ/L (21.0-32.0); BLOOD UREA NITROGEN 9 MG/DL (7-18); CALCIUM 8.4 MG/DL (8.5-10.1); CHLORIDE 110 MEQ/L (98-107); CREATININE 1.19 MG/DL (0.60-1.30); GLOMERULAR FILTRATION RATE 87 ML/MIN (>89); GLUCOSE,RANDOM 65 MG/DL (74-106); SODIUM (NA) 144 MEQ/L (136-145)
[2017-09-14 12:34] LABS: ALKALINE PHOSPHATASE 108 U/L (45-117); TOTAL BILIRUBIN ADULT 0.3 MG/DL (0.2-1.0); TOTAL PROTEIN 7.3 GM/DL (6.4-8.2)
[2017-09-14 12:43] LABS: ACETAMINOPHEN LESS THAN 2.0 MCG/ML (10.0-30.0)
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
== END 2017-09-14 15:08 | disposition home or self-care (01) ==
LOC: NEPD 09:44
DX: F12.10 Cannabis abuse, uncomplicated (principal); R45.851 Suicidal ideations; F90.9 Attention-deficit hyperactivity disorder, unspecified type; F25.9 Schizoaffective disorder, unspecified; F41.9 Anxiety disorder, unspecified; F17.210 Nicotine dependence, cigarettes, uncomplicated; Z76.5 Malingerer [conscious simulation]
CPT/HCPCS: 80053; 80307; 85025; 99283

== ENCOUNTER 2017-09-29 09:03 | Emergency (ER) | payer SELFPAY ==
[~2017-09-29] VITALS: Ht 188 cm; Wt 90.0 kg
[2017-09-29 09:04] VITALS: BP 160/75; PULSE 86; RESP 16; TEMP 98; O2SAT 99
--- NOTE | 2017-09-29 10:07 | PD ---
HPI Chief Complaint: Pain: Acute or Chronic Time Seen by Provider: 09:36 Travel History International Travel<30 days: No Contact w/Intl Traveler<30days: No Traveled to known affect area: No History of Present Illness HPI This is a 32-year-old male here with nontraumatic bilateral knee pain times one day. No fever or chills. Patient reports his knees hurt while walking. He reports he's been doing extensive walking over the last several days. Denies any injury or trauma. No swelling of the lower extremity is. No paresthesia or weakness. Symptom severity is moderate. Aggravated by walking and bending the knee relieved with rest. PFSH Past Medical History ADHD: Yes Anxiety: Yes Depression: Yes Cancer: No Cardiovascular Problems: Yes (high bp - Per records.) Diminished Hearing: No Endocrine: No Gastrointestinal Disorders: Yes (STOMACH ULCERS) Genitourinary: No Hypertension: Yes (no per patient at this time 07/19/17) Immune Disorder: No Implanted Vascular Access Dvce: No Musculoskeletal: Yes (Costochondritis) Neurologic: No Psychiatric: No Respiratory: No Immunizations Current: Yes Past Surgical History Abdominal Surgery: Yes (HERNIA REPAIR - INGUINAL LEFT @ age 15 - Per records.) Cholecystectomy: Yes Other Surgery: Yes (nasal polyps) Social History Alcohol Use: No Tobacco Use: Yes (1 CIG DAILY) Substance Use: Yes (flakka) Allergies-Medications (Allergen,Severity, Reaction): Coded Allergies: No Known Allergies (Verified Adverse Reaction, Unknown, 09/14/17) Per pt. Reported Meds & Prescriptions Reported Meds & Active Scripts Active No Active Prescriptions or Reported Medications Review of Systems Except as stated in HPI: all other systems reviewed are Neg General / Constitutional: No: Fever Physical Exam Narrative GENERAL: Alert and well-appearing 32-year-old male. Sleeping on the stretcher SKIN: Warm and dry. No rashes or erythema. HEAD: Normocephalic. NECK: Supple, trachea midline. CARDIOVASCULAR: Regular rate and rhythm RESPIRATORY: Breath sounds equal bilaterally. No accessory muscle use. MUSCULOSKELETAL: No cyanosis, or edema. Patient reports bilateral knee pain. No joint effusion. No warmth or erythema. No swelling or deformity. Patient is able to flex and extend the knees. He reports pain in the patellar region when palpated. 2+ distal pulses. Brisk cap refill. Data Data Last Documented VS Vital Signs Date Time Temp Pulse Resp B/P (MAP) Pulse Ox O2 Delivery O2 Flow Rate FiO2 09/29/17 09:04 98.0 86 16 160/75 (103) 99 Room Air Orders Orders Ed Discharge Order (09/29/17 10:07) Ketorolac Inj (Toradol Inj) (09/29/17 10:15) MDM Medical Decision Making Medical Screen Exam Complete: Yes Emergency Medical Condition: Yes Differential Diagnosis Arthralgia, knee sprain/strain, contusion Narrative Course 32-year-old male here with bilateral knee pain times one day. Patient's physical exam is essentially benign. Patient will be given a shot of Toradol and instructed to follow up with primary doctor. Diagnosis Primary Impression: Knee pain Qualified Codes: M25.561 - Pain in right knee; M25.562 - Pain in left knee Referrals: Primary Care Physician Additional Instructions: Take [id number] ibuprofen or Tylenol as needed for knee pain. Follow-up with her primary doctor. Scripts No Active Prescriptions or Reported Meds Disposition: 01 DISCHARGE HOME Condition: Stable Brianna Hoffmann Sep 29, 2017 10:07
[2017-09-29] MEDS ORDERED: KETOROLAC TROMETHAMINE 60 MG/2 ML (IM) VIAL IM ONE (10:15)
== END 2017-09-29 10:46 | disposition home or self-care (01) ==
LOC: NEPK 09:03
DX: M25.562 Pain in left knee (principal); M25.561 Pain in right knee; F32.9 Major depressive disorder, single episode, unspecified; F41.9 Anxiety disorder, unspecified; F90.9 Attention-deficit hyperactivity disorder, unspecified type; Z72.0 Tobacco use
CPT/HCPCS: 96372; 99284; J1885

== ENCOUNTER 2017-11-22 00:37 | Emergency (ER) | payer OTHER ==
[~2017-11-22] VITALS: Ht 187.3 cm; Wt 88.5 kg
[2017-11-22 00:45] VITALS: BP 135/80; PULSE 78; RESP 16; TEMP 98.1; O2SAT 98
[2017-11-22 01:35] VITALS: BP 141/86; PULSE 80; RESP 18; TEMP 98.6; O2SAT 99
[2017-11-22 02:16] LABS: BASOPHIL % 0.4 % (0.0-2.0); EOSINOPHIL # 0.2 TH/MM3 (0-0.4); EOSINOPHIL % 3.7 % (0.0-4.0); HEMATOCRIT 40.6 % (39.0-51.0); MEAN CELL VOLUME 81.5 FL (80.0-100.0); MEAN CORPUSCULAR HGB CONC 34.4 % (32.0-36.0); MEAN PLATELET VOLUME 8.6 FL (7.0-11.0); MONO % 15.2 % (0.0-8.0); MONOCYTE # 0.9 TH/MM3 (0-0.9); NEUT % 32.7 % (16.0-70.0); PLATELET COUNT 231 TH/MM3 (150-450); RED BLOOD COUNT 4.98 MIL/MM3 (4.50-5.90); RED CELL DISTRIBUTION WIDTH 14.6 % (11.6-17.2); WHITE BLOOD COUNT 6.2 TH/MM3 (4.0-11.0)
[2017-11-22 02:41] LABS: ALBUMIN 3.8 GM/DL (3.4-5.0); ALT (GPT) 29 U/L (12-78); AST (GOT) 31 U/L (15-37); BLOOD UREA NITROGEN 14 MG/DL (7-18); CALCIUM 8.3 MG/DL (8.5-10.1); CHLORIDE 108 MEQ/L (98-107); CREATININE 1.34 MG/DL (0.60-1.30); GLOMERULAR FILTRATION RATE 76 ML/MIN (>89); GLUCOSE,RANDOM 100 MG/DL (74-106); SODIUM (NA) 142 MEQ/L (136-145)
[2017-11-22 02:51] LABS: ACETAMINOPHEN LESS THAN 2.0 MCG/ML (10.0-30.0); ALKALINE PHOSPHATASE 110 U/L (45-117); TOTAL BILIRUBIN ADULT 0.4 MG/DL (0.2-1.0); TOTAL PROTEIN 7.4 GM/DL (6.4-8.2)
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
[2017-11-22 06:16] VITALS: BP 147/60; PULSE 62; RESP 18; TEMP 98.3; O2SAT 98
[2017-11-22 10:17] VITALS: BP 109/55; PULSE 72; RESP 18; O2SAT 98
[2017-11-22 14:26] VITALS: BP 117/84; PULSE 70; RESP 20; TEMP 99.2; O2SAT 99
--- NOTE | 2017-11-22 14:28 | PD ---
Physical Exam Time Seen by Provider: 14:28 Narrative Please refer to previous providers documentation for details around the patient' s current visit. Data Data Last Documented VS Vital Signs Date Time Temp Pulse Resp B/P (MAP) Pulse Ox O2 Delivery O2 Flow Rate FiO2 11/22/17 14:28 11/22/17 14:26 99.2 70 20 99 Room Air Orders Orders Complete Blood Count With Diff (11/22/17 01:16) Comprehensive Metabolic Panel (11/22/17 01:16) Thyroid Stimulating Hormone (11/22/17 01:16) Psych Screen (11/22/17 01:16) Drug Screen, Random Urine (11/22/17 01:16) Alcohol (Ethanol) (11/22/17 01:16) Salicylates (Aspirin) (11/22/17 01:16) Tylenol (Acetaminophen) (11/22/17 01:16) Diet Regular Basic (11/22/17 Breakfast) Diet Regular Basic (11/22/17 Lunch) Ed Discharge Order (11/22/17 14:27) Labs Laboratory Tests Test 11/22/17 02:00 White Blood Count 6.2 TH/MM3 Red Blood Count 4.98 MIL/MM3 Hemoglobin 14.0 GM/DL Hematocrit 40.6 % Mean Corpuscular Volume 81.5 FL Mean Corpuscular Hemoglobin 28.0 PG Mean Corpuscular Hemoglobin Concent 34.4 % Red Cell Distribution Width 14.6 % Platelet Count 231 TH/MM3 Mean Platelet Volume 8.6 FL Neutrophils (%) (Auto) 32.7 % Lymphocytes (%) (Auto) 48.0 % Monocytes (%) (Auto) 15.2 % Eosinophils (%) (Auto) 3.7 % Basophils (%) (Auto) 0.4 % Neutrophils # (Auto) 2.0 TH/MM3 Lymphocytes # (Auto) 3.0 TH/MM3 Monocytes # (Auto) 0.9 TH/MM3 Eosinophils # (Auto) 0.2 TH/MM3 Basophils # (Auto) 0.0 TH/MM3 CBC Comment DIFF FINAL Differential Comment Blood Urea Nitrogen 14 MG/DL Creatinine 1.34 MG/DL Random Glucose 100 MG/DL Total Protein 7.4 GM/DL Albumin 3.8 GM/DL Calcium Level 8.3 MG/DL Alkaline Phosphatase 110 U/L Aspartate Amino Transf (AST/SGOT) 31 U/L Alanine Aminotransferase (ALT/SGPT) 29 U/L Total Bilirubin 0.4 MG/DL Sodium Level 142 MEQ/L Potassium Level 3.7 MEQ/L Chloride Level 108 MEQ/L Carbon Dioxide Level 26.0 MEQ/L Anion Gap 8 MEQ/L Estimat Glomerular Filtration Rate 76 ML/MIN Thyroid Stimulating Hormone 3rd Gen 0.909 uIU/ML Salicylates Level LESS THAN 1.7 MG/DL Urine Opiates Screen NEG Acetaminophen Level LESS THAN 2.0 MCG/ML Urine Barbiturates Screen NEG Urine Amphetamines Screen NEG Urine Benzodiazepines Screen NEG Urine Cocaine Screen NEG Urine Cannabinoids Screen POS Ethyl Alcohol Level LESS THAN 3 MG/DL MDM Medical Record Reviewed: Yes Supervised Visit with MACKENZIE: No Narrative Course 32-year-old male presents emergency department under a Hung act. He has been medically cleared and evaluated by psychiatry. His Hung act has been lifted. He will be discharged at this time. Diagnosis Primary Impression: Substance induced mood disorder Additional Impression: Malingering Scripts No Active Prescriptions or Reported Meds Disposition: 01 DISCHARGE HOME Condition: Stable Huong Morales Nov 22, 2017 14:28
--- NOTE | 2017-11-22 14:33 | PD ---
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 The Hung act alleges that the subject admitted to having hallucinations and that he claimed to have violent thoughts are himself and others. He reported to ED staff that he had been drinking and had been smoking Flakka as well as math. He informed them that he wanted to get treatment for his substance abuse and denied any plan or thoughts of self-harm. The patient was monitored in secure environment and presented no behavioral concerns and no suicidality. The patient is seen in J pod. He is alert, oriented, malodorous, dressed in hospital gown. He states he is in the hospital because his friend and him got into a fight and his friend called the police. Patient at this time is not presenting any evidence of any psychosis, no ag or hypomania. The patient denies any suicidal or homicidal ideation, intent or plan. He is no longer interested in pursuing treatment at [facility] Past Medical History ADHD: Yes Anxiety: Yes Depression: Yes Cancer: No Cardiovascular Problems: Yes (high bp - Per records.) Diminished Hearing: No Endocrine: No Gastrointestinal Disorders: Yes (STOMACH ULCERS) Genitourinary: No Hypertension: Yes (no per patient at this time 07/19/17) Immune Disorder: No Implanted Vascular Access Dvce: No Musculoskeletal: Yes (Costochondritis) Neurologic: No Psychiatric: No Respiratory: No Immunizations Current: Yes Past Surgical History Abdominal Surgery: Yes (HERNIA REPAIR - INGUINAL LEFT) Cholecystectomy: Yes Other Surgery: Yes (nasal polyps, circumcision ) Psychiatric History Psychiatric History Hx Psychiatric Treatment: Patient with numerous visits to ED and Jpod with dx of substance induced mood disorder, polysubstance abuse and malingering. He has no inpatient psychiatric admissions so far at [facility]. He has been treated at [facility] but has been noncompliant with follow up care. History of Inpatient Treatment: Yes Guns or firearms in home: No Social History Single, homeless male. Unemployed. Hx Alcohol Use: No Hx Tobacco Use: Yes (2 TO 3 DAY) Hx Substance Use: Yes (flakka/marijuana ) Substance Use Type: Marijuana, Amphetamines-Stimulants, Nicotine/Cigarettes Other Substances Used: patient used flakka and amphetamines earlier today Hx of Substance Use Treatment: Yes Family Psychiatric History Negative Allergies-Medications (Allergen,Severity, Reaction): Coded Allergies: No Known Allergies (Verified Adverse Reaction, Unknown, 09/29/17) Per pt. Reported Meds & Prescriptions Reported Meds & Active Scripts Active No Active Prescriptions or Reported Medications Review of Systems Psychiatric: DENIES: Anxiety, Confusion, Mood changes, Depression, Hallucinations, Agitation, Suicidal Ideation, Homicidal Ideation, Delusions Except as stated in HPI: all other systems reviewed are Neg Mental Status Examination Appearance: Malodorous Consciousness: Alert Orientation: x4 Motor Activity: Normal gait Speech: Unremarkable Language: Adequate Fund of Knowledge: Adequate Attention and Concentration: Adequate Memory: Unremarkable Mood: Appropriate Affect: Appropriate Thought Process & Associations: Intact, Logical, Goal directed Thought Content: Appropriate Hallucination Type: None Delusion Type: None Suicidal Ideation: No Suicidal Plan: No Suicidal Intention: No Homicidal Ideation: No Homicidal Plan: No Homicidal Intention: No Insight: Poor Judgment: Impulsive MDM Medical Decision Making Medical Record Reviewed: Yes Assessment/Plan 32-year-old male with history of substance use disorder as well as substance induced mood disorder, known to this facility from previous ED visits, who presents under Hung act initiated after he was involved in an altercation with a friend and the friend called the police. Once the police arrived he reported that he was having thoughts of self-harm and he was placed under a Hung act. The patient admitted to having smoked Flakka as well as amphetamines. His toxicology is also positive for cannabinoids. The patient at this time does not present any evidence of unstable mental illness. He does not meet criteria to remain under the Hung act. The patient does have a substance use problem but is not wanting to address those issues at this time. Nevertheless he will be provided with the resources that are available to the community and which she is aware of. The Hung act is lifted. Psychiatrically clear for discharge. Orders Orders Complete Blood Count With Diff (11/22/17 01:16) Comprehensive Metabolic Panel (11/22/17 01:16) Thyroid Stimulating Hormone (11/22/17 01:16) Psych Screen (11/22/17 01:16) Drug Screen, Random Urine (11/22/17 01:16) Alcohol (Ethanol) (11/22/17 01:16) Salicylates (Aspirin) (11/22/17 01:16) Tylenol (Acetaminophen) (11/22/17 01:16) Diet Regular Basic (11/22/17 Breakfast) Diet Regular Basic (11/22/17 Lunch) Ed Discharge Order (11/22/17 14:27) Results Vital Signs Date Time Temp Pulse Resp B/P (MAP) Pulse Ox O2 Delivery O2 Flow Rate FiO2 11/22/17 14:28 11/22/17 14:26 99.2 70 20 117/84 (95) 99 Room Air 11/22/17 10:17 72 18 109/55 (73) 98 Room Air 11/22/17 06:16 98.3 62 18 147/60 (89) 98 Room Air 11/22/17 01:35 98.6 80 18 141/86 (104) 99 Room Air 11/22/17 00:45 98.1 78 16 135/80 (98) 98 Laboratory Tests Test 11/22/17 02:00 White Blood Count 6.2 Red Blood Count 4.98 Hemoglobin 14.0 Hematocrit 40.6 Mean Corpuscular Volume 81.5 Mean Corpuscular Hemoglobin 28.0 Mean Corpuscular Hemoglobin Concent 34.4 Red Cell Distribution Width 14.6 Platelet Count 231 Mean Platelet Volume 8.6 Neutrophils (%) (Auto) 32.7 Lymphocytes (%) (Auto) 48.0 Monocytes (%) (Auto) 15.2 Eosinophils (%) (Auto) 3.7 Basophils (%) (Auto) 0.4 Neutrophils # (Auto) 2.0 Lymphocytes # (Auto) 3.0 Monocytes # (Auto) 0.9 Eosinophils # (Auto) 0.2 Basophils # (Auto) 0.0 CBC Comment DIFF FINAL Differential Comment Blood Urea Nitrogen 14 Creatinine 1.34 Random Glucose 100 Total Protein 7.4 Albumin 3.8 Calcium Level 8.3 Alkaline Phosphatase 110 Aspartate Amino Transf (AST/SGOT) 31 Alanine Aminotransferase (ALT/SGPT) 29 Total Bilirubin 0.4 Sodium Level 142 Potassium Level 3.7 Chloride Level 108 Carbon Dioxide Level 26.0 Anion Gap 8 Estimat Glomerular Filtration Rate 76 Thyroid Stimulating Hormone 3rd Gen 0.909 Salicylates Level LESS THAN 1.7 Urine Opiates Screen NEG Acetaminophen Level LESS THAN 2.0 Urine Barbiturates Screen NEG Urine Amphetamines Screen NEG Urine Benzodiazepines Screen NEG Urine Cocaine Screen NEG Urine Cannabinoids Screen POS Ethyl Alcohol Level LESS THAN 3 Diagnosis Primary Impression: Substance induced mood disorder Additional Impressions: Malingering Polysubstance abuse Psychiatrically Cleared: Yes Departure Forms: Tests/Procedures Patient Instructions: General Instructions, Mood Disorders (ED) Med/ Other Pt Specific Info: No Meds Exist/No RX given Prescriptions No Active Prescriptions or Reported Meds Disposition: 01 DISCHARGE HOME Condition: Stable Problem Qualifiers Taylor Conner Nov 22, 2017 14:33
== END 2017-11-22 14:41 | disposition home or self-care (01) ==
LOC: NEDAMB 00:37 → NEPJ 14:41
DX: F19.94 Other psychoactive substance use, unspecified with psychoactive substance-induced mood disorder (principal); S61.212A Laceration without foreign body of right middle finger without damage to nail, initial encounter; F19.10 Other psychoactive substance abuse, uncomplicated; I10 Essential (primary) hypertension; F12.90 Cannabis use, unspecified, uncomplicated; W26.0XXA Contact with knife, initial encounter; Z59.0 Homelessness; Z87.891 Personal history of nicotine dependence; Z76.5 Malingerer [conscious simulation]
CPT/HCPCS: 80053; 80307; 84443; 85025; 99284

== ENCOUNTER 2017-12-28 20:54 | Emergency (ER) | payer SELFPAY ==
[~2017-12-28] VITALS: Ht 188 cm; Wt 82.0 kg
[2017-12-28 21:01] VITALS: BP 120/64; PULSE 90; RESP 18; TEMP 98.1; O2SAT 98
--- NOTE | 2017-12-28 21:10 | PD ---
HPI Chief Complaint: Psychiatric Symptoms Time Seen by Provider: 21:09 Travel History International Travel<30 days: No Contact w/Intl Traveler<30days: No Traveled to known affect area: No History of Present Illness HPI 32-year-old male with history of schizophrenia presents the emergency department voluntarily for psychiatric evaluation. Patient states that he has been off his medication and has been having more frequent auditory hallucinations. He states that he needs a ride to [facility] so he can get his medication adjusted. He denies suicidal or homicidal ideations. States at times he wants to hurt the voices in his head but he knows that they are not real. States that he treats his schizophrenia by using illicit drug Kiran. Patient denies any acute medical needs at this time. PFSH Past Medical History ADHD: Yes Anxiety: Yes Depression: Yes Cancer: No Cardiovascular Problems: Yes (high bp - Per records.) Diminished Hearing: No Endocrine: No Gastrointestinal Disorders: Yes (STOMACH ULCERS) Genitourinary: No Hypertension: Yes (no per patient at this time 07/19/17) Immune Disorder: No Implanted Vascular Access Dvce: No Musculoskeletal: Yes (Costochondritis) Neurologic: No Psychiatric: No Respiratory: No Immunizations Current: Yes Schizophrenia: Yes Tetanus Vaccination: < 5 Years Past Surgical History Abdominal Surgery: Yes (HERNIA REPAIR - INGUINAL LEFT) Cholecystectomy: Yes Other Surgery: Yes (nasal polyps, circumcision ) Social History Alcohol Use: No Tobacco Use: Yes (2 TO 3 DAY) Substance Use: Yes (flakka/marijuana kiran) Allergies-Medications (Allergen,Severity, Reaction): Coded Allergies: No Known Allergies (Verified Adverse Reaction, Unknown, 12/28/17) Per pt. Reported Meds & Prescriptions Reported Meds & Active Scripts Active No Active Prescriptions or Reported Medications Review of Systems Except as stated in HPI: all other systems reviewed are Neg Physical Exam Narrative GENERAL: Well-nourished male patient with bizarre affect but in no acute distress. SKIN: Focused skin assessment warm/dry. HEAD: Atraumatic. Normocephalic. EYES: Pupils equal and round. No scleral icterus. No injection or drainage. ENT: No nasal bleeding or discharge. Mucous membranes pink and moist. NECK: Trachea midline. No JVD. CARDIOVASCULAR: Regular rate and rhythm. No murmur appreciated. RESPIRATORY: No accessory muscle use. Clear to auscultation. Breath sounds equal bilaterally. GASTROINTESTINAL: Abdomen soft, non-tender, nondistended. Hepatic and splenic margins not palpable. MUSCULOSKELETAL: No obvious deformities. No clubbing. No cyanosis. No edema. NEUROLOGICAL: Awake and alert. No obvious cranial nerve deficits. Motor grossly within normal limits. Normal speech. Data Data Last Documented VS Vital Signs Date Time Temp Pulse Resp B/P (MAP) Pulse Ox O2 Delivery O2 Flow Rate FiO2 12/28/17 21:01 98.1 90 18 120/64 (82) 98 Orders Orders Complete Blood Count With Diff (12/28/17 21:09) Thyroid Stimulating Hormone (12/28/17 21:09) Basic Metabolic Panel (Bmp) (12/28/17 21:09) Psych Screen (12/28/17 21:09) Drug Screen, Random Urine (12/28/17 21:09) Alcohol (Ethanol) (12/28/17 21:09) MDM Medical Decision Making Medical Screen Exam Complete: Yes Emergency Medical Condition: Yes Medical Record Reviewed: Yes Differential Diagnosis Substance abuse versus mood disorder versus personality disorder Narrative Course 32-year-old male presents emergency department requesting a ride to [facility] to get his medication adjusted for schizophrenia. Denies any suicidal or homicidal ideations. He does report using Kiran as a replacement for his psych meds that he does not have currently. I have ordered labs for medical clearance. Patient states that he does not want to wait for this to happen and he would like to complain at the delay it is taking for him to get to [facility] because the bus is not running. Charge nurse has been contacted. In the interim, patient has chosen to leave our facility AGAINST MEDICAL ADVICE. AMA: The risks of leaving against medical advice without further evaluation treatment were discussed with the patient. These risks include cardiac dysfunction, cardiac dysrhythmia, possible heart attack, possible stroke or . The patient indicated understanding of these risks and appeared to have the capacity to make this decision. Diagnosis Primary Impression: Substance abuse Scripts No Active Prescriptions or Reported Meds Disposition: 07 AGAINST MEDICAL ADVICE Condition: Stable Huong Morales KRISTINE Dec 28, 2017 21:09
== END 2017-12-28 21:50 | disposition left against medical advice (07) ==
LOC: NEPD 20:54
DX: F19.10 Other psychoactive substance abuse, uncomplicated (principal); F20.9 Schizophrenia, unspecified; F90.9 Attention-deficit hyperactivity disorder, unspecified type; F41.9 Anxiety disorder, unspecified; I10 Essential (primary) hypertension; Z72.0 Tobacco use
CPT/HCPCS: 99281